=== PATIENT | female | born 2000 | race Caucasian/White ===

== ENCOUNTER 2021-07-13 10:44 | Emergency (ER) | payer OTHER, SELFPAY ==
[2021-07-13 10:58] VITALS: BP 115/74; PULSE 104; RESP 16; TEMP 36.6; O2SAT 99
--- NOTE | 2021-07-13 10:59 | ED.URI ---
HPI - URI/Sore Throat General Chief Complaint: Upper Respiratory Infection Stated Complaint: sinus infection Time Seen by Provider: 07/13/21 11:02 Source: patient History of Present Illness HPI Narrative: patient presents with 2 day history of runny nose, body aches and headache. no high fever . normal appetite and activity. normally healthy individual. patient is covid vaccinated. MD elicited complaint: sore throat and nasal congestion Related Data Home Medications Medication Instructions Recorded Confirmed No Home Medications 07/13/21 07/13/21 Allergies Allergy/AdvReac Type Severity Reaction Status Date / Time No Known Drug Allergies Allergy Unknown Verified 07/13/21 10:58 Review of Systems Review of Systems: CONSTITUTIONAL: Denies chills, or sweats. Reports fever and generalized body aches EYES: Denies visual changes, redness, or discharge. ENT: Denies otalgia. Reports nasal congestion runny nose and sore throat CARDIOVASCULAR: Denies chest pain, palpitations, or edema. RESPIRATORY: Denies dyspnea. Reports occasional cough GASTROINTESTINAL: Denies abdominal pain, nausea, vomiting, or diarrhea. GENITOURINARY: Denies dysuria or hematuria. SKIN: Denies rash or itching. MUSCULOSKELETAL: Denies back pain, joint pain, or myalgia. Reports generalized body aches NEUROLOGIC: Denies headache, numbness, or weakness. PSYCHIATRIC: Denies anxiety or depression. PMFSH Comments At time of signature, agree with nursing past medical, surgical, social and family history. There is no relevant family history pertinent to the presenting complaint Exam Narrative: The patient is a well-developed, well-nourished in no acute distress. SKIN: Skin is warm and dry without erythema, swelling or exudate. There is good turgor. No tenting. HEAD: Atraumatic. Normocephalic. No temporal or scalp tenderness. EYES: Moist and bright. Sclera and conjunctivae normal. No discharge. PERRLA. Extraocular motions intact. Gross visual acuity intact. EARS: Pinna is normal shape and contour. Clear external auditory canals. TM pearly multani with good cone of light, no erythema or suppuration. Bilateral cerumen noted no gross hearing deficit. NOSE: pink, moist mucosa with good air movement. Clear rhinorrhea without nasal flaring. Septum midline. Mouth: moist mucous membranes. THROAT; mild erythema noted to posterior oropharynx with moderate postnasal drainage. Without exudate or ulceration.. Uvula midline. Normal movement of soft palate. NECK: Supple and nontender with full range of motion without discomfort. No meningeal signs. LUNGS: Equal and bilateral breath sounds without wheezes, rales or rhonchi. CHEST: The chest wall is without retractions or use of accessory muscles. HEART: Has a regular rate and rhythm without murmur, gallops, click or rub. ABDOMEN: Soft, nontender with positive active bowel sounds. No rebound tenderness. EXTREMITIES: Without cyanosis, clubbing or edema. Equal 2+ distal pulses and 2 second capillary refill noted. NEUROLOGIC: alert, active, . The patient moves all extremities with normal muscle strength. Normal muscle tone is noted. Normal coordination is noted. NO focal neurological findings noted. Course Course Level of Care: Express Care Visit Vital Signs Vital signs: Vital Signs Temperature 36.6 C 07/13/21 10:58 Pulse Rate 104 H 07/13/21 10:58 Respiratory Rate 16 07/13/21 10:58 Blood Pressure 115/74 07/13/21 10:58 Pulse Oximetry 99 07/13/21 10:58 Temperature 36.6 C 07/13/21 10:58 Pulse Rate 104 H 07/13/21 10:58 Respiratory Rate 16 07/13/21 10:58 Blood Pressure 115/74 07/13/21 10:58 Pulse Oximetry 99 07/13/21 10:58 Critical dx considered and discussed with pt. Educated patient on red flag s/s and to go to ED if s/s occur. Discussed with pt when to return to Express Care or primary care provider. Pt gave verbal undertstanding, all questions were answered, and pt was agreeable to plan MDM -
== END 2021-07-13 11:18 | disposition home or self-care (01) ==
PROVIDERS: Emergency Provider Nurse Practitioner Family; PCP Nurse Practitioner Family
DX: U07.1 COVID-19 (principal)
CPT/HCPCS: 87426; 99203; C9803; G0463

== ENCOUNTER 2024-06-10 13:37 | Emergency (ER) | payer OTHER, SELFPAY ==
[2024-06-10 14:20] VITALS: BP 139/83; PULSE 62; RESP 16; TEMP 36.9; O2SAT 97
--- NOTE | 2024-06-10 15:58 | ED.DENTAL ---
HPI - Dental/Oral General Chief complaint: Dental/Oral Stated complaint: sores behind teeth/tender gums Time Seen by Provider: 06/10/24 15:50 Source: patient, RN notes reviewed and old records reviewed Mode of arrival: ambulatory Limitations: no limitations History of Present Illness HPI Narrative: 23 year old female who presents to [facility] care with complaints of white type of blisters of gums behind bottom front teeth with some redness and discomfort under her tongue for the past 3 days. Patient reports no sore throat or any dyspnea,denies any dental pain or any known cavities. Patient reports that she has had canker sores in the past. Patient has not tried any OTC medication for her symptoms. Onset (ago): day(s) (3) Severity: mild Treatment prior to arrival: none Related Data Home Medications ?Medication ?Instructions ?Recorded ?Confirmed ?Last Taken ?Type citalopram 40 mg tablet mg 06/10/24 Unknown History etonogestrel 0.12 mg-ethinyl vag ring vaginal 06/10/24 Unknown History estradiol 0.015 mg/24 hr vaginal ring (EluRyng) Allergies Allergy/AdvReac Type Severity Reaction Status Date / Time No Known Drug Allergies Allergy Unknown Verified 06/10/24 14:26 Review of Systems Review of Systems: CONSTITUTIONAL: Denies fever, chills, or sweats. ENT: Denies rhinorrhea, congestion, sore throat, or otalgia. reports blister type of lesion behind the bottom lower lower front teeth with some soreness and redness to tissue under tongue, denies any dental pain CARDIOVASCULAR: Denies chest pain, palpitations, or edema. RESPIRATORY: Denies cough or dyspnea. SKIN: Denies rash or itching. MUSCULOSKELETAL: Denies myalgia. NEUROLOGIC: Denies headache All systems reviewed & are unremarkable except as noted in HPI and below PMFSH Past Medical History Medical History (Updated 06/12/24 @ 15:39 by Cristina Valenzuela NP) Anxiety and depression OCD (obsessive compulsive disorder) Social History Social History (Updated 06/12/24 @ 15:40 by Cristina Valenzuela NP) Smoking status: Current every day smoker Tobacco type: e-cigarettes/vaping Alcohol intake: unknown Substance use: unknown Gender identity (if verbalized by the patient): Female Comments At time of signature, agree with nursing past medical, surgical, social and family history. There is no relevant family history pertinent to the presenting complaint Exam Narrative: GENERAL: Well-appearing, well-nourished, and in no acute distress. HEAD: Normocephalic, atraumatic. EYES: PERRLA and EOMI. ENT: Nares clear, no rhinorrhea or epistaxis. Mucous membranes moist. Patient has no missing teeth or any noted cavities, has white blister type of lesions behind bottom lower front teeth with some redness and discomfort to tissue under tongue, No difficulty with swallowing or with her breathing, no Johnathan angina or any trismus NECK: Supple. no lymphadenopathy CHEST: Clear to auscultation. No respiratory distress.SAO2 97% on room air HEART: Regular rate and rhythm. No murmur heard. Normal peripheral pulses. SKIN: Warm, dry, no rash. NEURO: No focal deficits. Alert and oriented x3. Course Course Emergency Course: Patient is aware of diagnosis, understands and agrees to treatment plan. Anticipatory guidance given. Patient agrees to follow-up as directed and is aware of reasons to seek care at the emergency department. Portions of this record may have been created with voice recognition software Level of Care: Express Care Visit Vital Signs Vital signs: Vital Signs Temperature 36.9 C 06/10/24 14:20 Pulse Rate 62 06/10/24 14:20 Respiratory Rate 16 06/10/24 14:20 Blood Pressure 139/83 06/10/24 14:20 Pulse Oximetry 97 06/10/24 14:20 Oxygen Delivery Room Air 06/10/24 14:20 Temperature 36.9 C 06/10/24 14:20 Pulse Rate 62 06/10/24 14:20 Respiratory Rate 16 06/10/24 14:20 Blood Pressure 139/83 06/10/24 14:20 Pulse Oximetry 97 06/10/24 14:20 Oxygen Delivery Room Air 06/10/24 14:20 Reviewed MDM - Dental/Oral MDM Narrative Medical decision making narrative: Patients pain and complaint coupled with physical findings are consistent with dentalgia. There are no focal signs of space occupying lesions that are compromising to the airway; no dysphagia, odynophagia, dysphonia, or dyspnea. No uvular deviation or soft palate edema. Patient is non-toxic appearing. The floor of the mouth is soft with no signs of Johnathan's Angina; no induration below mandible, no neck pain.? Patient is without trismus or drooling and able to swallow secretions.? Patient is felt appropriate for discharge home with dental follow up. Differential Diagnosis Differential diagnosis: Likely gingival abscess, aphthous ulcer and other (stomatitis, gum lesions) Medical Records Attestation: I reviewed the patient's medical records. Lab Data Attestation: I reviewed the patient's lab results. Critical Care Time Critical Care Time Critical Care Time: No Discharge Plan Discharge Clinical Impression: Gingival abscess Patient Disposition: Home, Self-Care Condition: Stable Instructions: Antibiotic Form, Gingivostomatitis (ED) Additional Instructions: Avoid temperature extremes May apply heat or ice to the face Gentle brushing and flossing Antibiotic as directed Tylenol for lesser pain Use ibuprofen regularly Peridex mouthwash Follow-up with the dentist as soon as possible--see the list provided need to get good cleaning done and exam If your symptoms persist, change or worsen significantly before you can contact your personal physician then please, without delay, go to the emergency department for further evaluation. Follow-up with PCP in 7-10 days or sooner if needed Follow up with PCP soon in regards to your blood pressure which is elevated above threshold for referral. Blood pressure above 120/80 may indicate pre-hypertension. 139/83 Patient Language: Bengali Prescriptions: New amoxicillin-pot clavulanate 875-125 mg tablet 1 tablet PO Q12H Qty: 20 0RF chlorhexidine gluconate [Peridex] 0.12 % mouthwash 15 ml mucous membrane BID Qty: 473 0RF No Action citalopram 40 mg tablet etonogestrel-ethinyl estradiol [EluRyng] 0.12-0.015 mg/24 hr ring VAGINAL Follow-up/Referrals: Sonia,MD Blane [Primary Care Provider] - Stand Alone Forms: Work/School Release IP Time of Disposition: 16:14 Quality [place]ena Coma Scale Eyes: Open Verbal: Oriented and Alert Motor: Follows Commands [place] Coma Total Score: 15
== END 2024-06-10 16:21 | disposition home or self-care (01) ==
PROVIDERS: Emergency Provider Registered Nurse; PCP Family Medicine
DX: K05.20 Aggressive periodontitis, unspecified (principal); F17.290 Nicotine dependence, other tobacco product, uncomplicated
CPT/HCPCS: 99213; G0463

== ENCOUNTER 2024-09-02 11:43 | Emergency (ER) | payer OTHER, SELFPAY ==
--- NOTE | ~2024-09-02 | XR_ITS ---
XR wrist RT min 3V Ordering provider: Flor Couch APRN History: . pain posterior and medial rt wrist x 2 days, bump posterior . Comparison: None. FINDINGS: BONES: No acute fracture or dislocation. No definite scaphoid fracture. Sclerotic area with central lucency is seen in the scaphoid bone which may indicate a cyst. JOINT SPACES: Normal. SOFT TISSUES: Normal. IMPRESSION: No acute osseous abnormality right wrist. Reviewed, dictated and finalized at location A.
[2024-09-02 11:51] VITALS: BP 118/79; PULSE 79; RESP 16; TEMP 36.6; O2SAT 99
--- NOTE | 2024-09-02 12:03 | ED_ITS ---
HPI - Extremity Injury (Upper) General Chief Complaint: Extremity Injury, Upper Stated Complaint: pain in right wrist Time Seen by Provider: 09/02/24 12:03 Source: patient, RN notes reviewed and old records reviewed Mode of arrival: ambulatory Limitations: no limitations History of Present Illness HPI narrative: 23-year-old female presents to the [facility] with right wrist pain. Ulnar aspect. No snuffbox tenderness. Patient states that she is working in her garden and lifting a lot heavy rocks. No bruising or swelling noted. Also has a concern for a bump on the dorsal aspect wrist Onset (ago): day(s) (1) Related Data Home Medications ?Medication ?Instructions ?Recorded ?Confirmed ?Last Taken ?Type citalopram 40 mg tablet mg 06/10/24 Unknown History etonogestrel 0.12 mg-ethinyl vag ring vaginal 06/10/24 Unknown History estradiol 0.015 mg/24 hr vaginal ring (EluRyng) Allergies Allergy/AdvReac Type Severity Reaction Status Date / Time No Known Drug Allergies Allergy Unknown Verified 09/02/24 11:55 Review of Systems Review of Systems: All systems reviewed & are unremarkable except as noted in HPI and below Constitutional: Constitutional: Reports no additional constitutional complaints ENT: Reports system reviewed and no additional complaints, except as documented Cardiovascular: Cardiovascular: Reports no additional cardiovascular complaints, Denies chest pain and Denies dyspnea Respiratory: Respiratory: Reports no additional respiratory complaints, Denies chest congestion, Denies cough and Denies dyspnea Musculoskeletal: Musculoskeletal: Reports as per HPI and Reports arthralgias (Right wrist) Integumentary/Breasts: Skin/Breast: Reports system reviewed and no additional complaints, except as docu PMFSH Past Medical History Medical History Anxiety and depression OCD (obsessive compulsive disorder) Social History Social History Smoking status: Current every day smoker Tobacco type: e-cigarettes/vaping Alcohol intake: unknown Substance use: unknown Gender identity (if verbalized by the patient): Female Comments At the time of my signature, I reviewed and agree with the nursing past medical, surgical, social, and family history. There is no relevant family history pertinent to the patient complaint. Exam Const: General: cooperative, healthy appearing, comfortable, no acute di stress, well developed, alert and well nourished Nutritional Appearance: well nourished Orientation/consciousness: patient oriented x3 Limitations: no limitations HENMT: Head: normal to inspection Eyes: General: appearance normal, both eyes and all related structures Alignment and Position: alignment normal Neck: Neck: normal visual inspection, full ROM, no lymphadenopathy and no meningeal signs Chest: Chest palpation & inspection: normal inspection of the chest Resp: Effort & Inspection: normal respiratory effort and able to speak in complete sentences Cardio: Rate: regular rate Skin: General skin exam: normal color and no rashes or lesions noted Neuro: General: patient oriented x3, gait normal, moves all extremities and no meningeal signs Cognition (Neuro): normal cognition Speech: normal speech Gait exam (Neuro): Normal gait present Extrem: General: normal to inspection, full ROM, capillary refill normal and normal gait Right upper extremity: wrist tenderness of the distal ulna, abnormal ROM pain with active ROM during, normal vascular exam and radial pulse present; no swelling, no lacerations, no ecchymosis, no crepitus, no foreign body, no penetrating wound and no deformity and Extremity exam: right hand normal to inspection and normal capillary refill Psych: Appearance: grossly normal and well kempt Mental Status: mental status grossly normal Speech and movement: Normal speech and movement present and Clear speech present Affect: normal affect Attitude: cooperative Course Course Level of Care: Express Care Visit Vital Signs Vital signs: Vital Signs Temperature 97.9 F 09/02/24 11:51 Pulse Rate 79 09/02/24 11:51 Respiratory Rate 16 09/02/24 11:51 Blood Pressure 118/79 09/02/24 11:51 Pulse Oximetry 99 09/02/24 11:51 Oxygen Delivery Room Air 09/02/24 11:51 Temperature 97.9 F 09/02/24 11:51 Pulse Rate 79 09/02/24 11:51 Respiratory Rate 16 09/02/24 11:51 Blood Pressure 118/79 09/02/24 11:51 Pulse Oximetry 99 09/02/24 11:51 Oxygen Delivery Room Air 09/02/24 11:51 Reviewed MDM - Extremity Injury (Upper) MDM Narrative Medical decision making narrative: Patient sitting comfortably in exam room. Nontoxic, vitals stable. Patient in no acute distress. Patient presents with 1 day history of right wrist pain. X- rays negative. Exam consistent with sprain and a ganglion cyst. Patient appropriate for outpatient treatment with close follow-up. Discharge instructions reviewed with patient, as well as provided in writing per nursing staff. The instructions also include specific and strict return/GO TO THE ER as well as f/u information. All questions have been answered, and the patient deny any further questions with discharge and discharge plan. Some parts of this dictation were generated by voice recognition software and may contain typographical and/or grammatical inaccuracies. Differential Diagnosis Differential diagnosis: Likely sprain and strain of wrist and fracture of wrist Imaging Data Radiologist's impression: XR wrist RT min 3V Ordering provider: Flor Couch APRN History: . pain posterior and medial rt wrist x 2 days, bump posterior . Comparison: None. FINDINGS: BONES: No acute fracture or dislocation. No definite scaphoid fracture. Sclerotic area with central lucency is seen in the scaphoid bone which may indicate a cyst. JOINT SPACES: Normal. SOFT TISSUES: Normal. IMPRESSION: No acute osseous abnormality right wrist. Critical Care Time Critical Care Time Critical Care Time: No Discharge Plan Discharge Clinical Impression: Ganglion cyst of dorsum of right wrist Sprain of wrist, right Qualifiers: Encounter type: initial encounter Qualified Code(s): S63.501A - Unspecified sprain of right wrist, initial encounter Patient Disposition: Home, Self-Care Condition: Stable Instructions: Ganglion Cyst (ED), Wrist Sprain (ED) Additional Instructions: Your Xray did not show a fracture. Ice should be applied to help reduce swelling. It can be used for 20 to 30 minutes, every 2-3 hours while awake. Do not apply ice directly to your skin. A wrist brace or fadi-wraps will help support your injured wrist You can alternate ibuprofen 600mg and Tylenol 650mg every 4 hours as needed for pain Please schedule a follow-up visit with your personal physician for further evaluation and treatment within 2 weeks especially if symptoms persist. For new or worsening symptoms go directly to the emergency room Patient Language: Citizen Of [place] Prescriptions: No Action citalopram 40 mg tablet etonogestrel-ethinyl estradiol [EluRyng] 0.12-0.015 mg/24 hr ring VAGINAL Follow-up/Referrals: PHYSICIAN NOT ON STAFF,NONSTAFF [Primary Care Provider] - Stand Alone Forms: Work/School Release IP Time of Disposition: 12:32
--- OUTSIDE RECORDS SUMMARY | 2024-09-02 12:32 | XMS_ITS | Referral Summary ---
Author Organization [facility] [address] Address 1 [facility] [place] [address] Phone Care Team Providers Care Pocket Stitcher Name Role Phone Blane Scott MD Primary Care Provider [phone] Encounters Date Type Department Care Team Description 07/28/2024 11:30 AM AUDIO PRODUCTION INSTRUCTOR Office Visit [facility] Primary Care at [address] [place] [address] Blane Scott MD Depression with anxiety (Primary Dx); Class 1 obesity due to excess calories without serious comorbidity with body mass index (BMI) of 32.0 to 32.9 in adult; Iron deficiency; Preventative health care; Lipid screening; Need for influenza vaccination from Last 3 Months Allergies No known active allergies Medications etonogestreL-ethi nyl estradioL (NUVARING, ELURYNG) 0.12-0.015 mg/24 hr vaginal ringIndications:E ncounter for surveillance of vaginal ring hormonal contraceptive device Insert vaginally and leave in place for 3 consecutive weeks, then remove for 1 week. 3 each 4 4 025 Active citalopram (CeleXA) 40 mg tablet Take 1 tablet (40 mg total) by mouth daily 90 tablet 2 5 Active Active Problems Problem Noted Date Diagnosed Date Annual physical exam 01/22/2024 Assessment & Plan (01/22/2024 10:49 AM CDT): Discussed lifestyle modifications, diet and exercise. Routine blood work ordered/reviewed today. Yearly vision and dental examinations. COVID-19 03/17/2023 Assessment & Plan (03/17/2023 3:08 PM CDT): Paxlovid prescribed, Paxlovid fact she sent to patient via [employer]. Treat symptoms with [id number] medications. Go to nearest emergency room if signs or symptoms worsen. Irritable bowel syndrome with diarrhea Assessment & Plan (11/18/2022 11:50 AM CDT): Symptoms are stable. Assessment & Plan (05/16/2022 10:58 AM AUDIO PRODUCTION INSTRUCTOR): Increase fiber in diet. Decrease fatty/ greasy food. May continue bentyl prn. Assessment & Plan (04/04/2022 11:55 AM CDT): Discussed treatment options including nortriptyline or amitriptyline, however, she still gets up at night with her baby, so we didn't think this was a good option at this time. She was already asking about restarting sertraline and I think this is a good option. Restart at 50mg, previous dose. I talked to her about bentyl, using as needed for symptoms. Pt was agreeable with this plan. May f/u 6 weeks for recheck and prn Class 1 obesity due to exces s calories with body mass index (BMI) of 32.0 to 32.9 in adult 05/01/2020 Assessment & Plan (07/28/2024 11:24 AM AUDIO PRODUCTION INSTRUCTOR): Wt Readings from Last 3 Encounters: 07/28/24 88.6 kg (195 lb 4.8 oz) 04/20/24 87 kg (191 lb 12.8 oz) 01/28/24 83 kg (183 lb) BMI Readings from Last 3 Encounters: 07/28/24 35.13 kg/m 04/20/24 34.52 kg/m 01/28/24 32.94 kg/m Not at goal of bmi <30 Continue diet and exercise BMI Follow-up includes: nutrition counseling and exercise counseling. Assessment & Plan (01/22/2024 10:51 AM CDT): Wt Readings from Last 3 Encounters: 01/22/24 82.4 kg (181 lb 9.6 oz) 11/17/23 78.9 kg (174 lb) 07/22/23 76.7 kg (169 lb) BMI Readings from Last 3 Encounters: 01/22/24 32.66 kg/m 11/17/23 31.32 kg/m 07/22/23 30.40 kg/m Not at goal of bmi <30 Continue diet and exercise BMI Follow-up includes: nutrition counseling and exercise counseling. Assessment & Plan (07/22/2023 10:26 AM AUDIO PRODUCTION INSTRUCTOR): Wt Readings from Last 3 Encounters: 07/22/23 76.7 kg (169 lb) 07/17/23 77 kg (169 lb 11.2 oz) 04/09/23 73.9 kg (163 lb) BMI Readings from Last 3 Encounters: 07/22/23 30.40 kg/m 07/17/23 30.52 kg/m 04/09/23 29.34 kg/m Not at goal of bmi <30 Continue diet and exercise BMI Follow-up includes: nutrition counseling and exercise counseling. Assessment & Plan (07/17/2023 11:19 AM AUDIO PRODUCTION INSTRUCTOR): Wt Readings from Last 3 Encounters: 07/17/23 77 kg (169 lb 11.2 oz) 04/09/23 73.9 kg (163 lb) 03/17/23 78 kg (172 lb) BMI Readings from Last 3 Encounters: 07/17/23 30.52 kg/m 04/09/23 29.34 kg/m 03/17/23 30.96 kg/m Not at goal of bmi <30 Continue diet and exercise BMI Follow-up includes: nutrition counseling and exercise counseling. Assessment & Plan (01/13/2023 2:20 PM CDT): Wt Readings from Last 3 Encounters: 01/13/23 76.1 kg (167 lb 11.2 oz) 11/18/22 75.3 kg (166 lb) 05/16/22 78.9 kg (174 lb) BMI Readings from Last 3 Encounters: 01/13/23 30.16 kg/m 11/18/22 29.88 kg/m 05/16/22 31.32 kg/m Not at goal of bmi <30 Continue diet and exercise BMI Follow-up includes: nutrition counseling and exercise counseling. Assessment & Plan (04/04/2022 11:57 AM CDT): BMI Follow-up includes: nutrition counseling. Assessment & Plan (09/12/2021 10:40 AM CDT): HPI: Condition is not at/near goal A&P: Discussed/ordered labs, encouraged healthy, low carbohydrate lifestyle and at least 150min/week of exercise Assessment & Plan (09/11/2021 10:26 AM CDT): HPI: Condition is not at/near goal goal BMI <30 A&P: Healthy, high-protein, lower carbohydrate, lower fat lifestyle and exercise for 150min/week recommended Substitutions: Recommend tracking everything you put in your mouth on an kaushik like [employer] or [employer] carries a zero net carb bread If you are looking for whole potatoes, like to use in soup or new potato shape/flavor, radishes are a great replacement If you are looking for mashed potatoes, riced cauliflower in the frozen bag section are a great replacement For pasta, try using zucchini noodles, lay them out on a cookie sheet and pat dry with a tea towel to try to remove as much moisture as possible. Heat your pasta sauce on the stove and put the noodles in for 30-45 seconds. If you leave them in much longer they will become mushy [place] and/or coconut flour instead of regular flour For pizza dough, try fathead pizza dough recipe online. To get a crispy crust, bake on one side for 8-12 min, then flip over and bake on the other side for 8-12 min, then put toppings on and bake until the cheese on top of pizza melts chaffles recipe online For ice cream, try the brand Enlightened To replace coffee creamer and make it low carb, use heavy creamer with sugar free Torani sweetener For chips, try Whisps or pork rinds For yogurt, try Two Good surinamese yogurt Use Pinterest for recipe ideas. Type in low carb... Migraine without aura and wi thout status migrainosus, not intractable 01/22/2018 Assessment & Plan (03/05/2020 10:01 PM CDT): Discussed hx of head injury, but given this occurred 2-3 months ago, will treat for current migraine headaches. Discussed starting a triptan and when to take/ dosing. May still take with nsaids or acetaminophen. I asked her to f/u in 1 month for recheck. Pt was agreeable with plan of care Assessment & Plan (01/22/2018 1:14 PM CDT): Headaches are newly identified. Continue current treatment regimen. I do not want to start any new medication at this time due to syncopal episode. She may continue the advil or tylenol at this time. Rest and fluids. Menorrhagia with regular cycle 01/16/2018 Assessment & Plan (01/18/2018 10:58 PM CDT): Continue with BCP Pt. Reports decrease in bleeding with use of BCP Vitamin D deficiency 01/16/2018 Iron deficiency 12/08/2017 Assessment & Plan (07/28/2024 11:26 AM AUDIO PRODUCTION INSTRUCTOR): Lab Results Component Value Date WBC 5.0 01/13/2023 HGB 14.2 01/13/2023 HCT 42.4 01/13/2023 MCV 86.5 01/13/2023 LABPLAT 235 01/13/2023 Stable Cbc as above No longer supplem,enting iron Continue current regimen Assessment & Plan (01/13/2023 2:24 PM CDT): Recheck cbc now and iron panel Assessment & Plan (01/18/2018 10:56 PM CDT): Constipated x 6 days when on Iron supplement. Tries to take medication but hard to tolerate-upset stomach, bloating Will recheck cbc Refer to GI-for reports of some blood in the stool Pt. On control to help with heavy periods. Pt. Was also a vegetarian but started eating meat in the last 4-5 weeks. If no improvement in CBC, will consider doing Iron infusions Assessment & Plan (12/08/2017 5:32 PM CDT): Pt. Went to donate blood and they stated that her iron count was too low to donate. Check iron studies Addendum show CARLOS Will order supplemtn Depression with anxiety 10/15/2017 Overview (11/18/2022): Discontinued Zoloft 100 mg with . Zoloft: while a teenager, and Assessment & Plan (07/28/2024 11:25 AM AUDIO PRODUCTION INSTRUCTOR): At goal at this time Has had some stress at home Celexa 40 mg every day Assessment & Plan (01/22/2024 10:50 AM CDT): At goal at this time Has had some stress at home Celexa 40 mg every day Cont inderal 20 mg tid, buspar 5 mg tid Assessment & Plan (07/22/2023 10:23 AM AUDIO PRODUCTION INSTRUCTOR): Not at goal at this time Will increase celexa to 40 mg every day States that she has had periods of 'paranoia' , gets heart palpitations, feels hyper aware of her body and anxiety worsens Worsening sx Start buspar 5 mg tid Start propranolol Assessment & Plan (07/17/2023 11:18 AM AUDIO PRODUCTION INSTRUCTOR): Not at goal at this time Will increase celexa to 40 mg every day States that she has had periods of 'paranoia' , gets heart palpitations, feels hyper aware of her body and anxiety worsens Assessment & Plan (01/13/2023 2:23 PM CDT): Currently on Celexa 20 mg every day States that she takes it at night because it makes her tired States that her anxiety has improved somewhat but not at goal Has not used the hydroxyzine at all Assessment & Plan (11/18/2022 9:35 AM CDT): Worsening. Will start citalopram 20mg. Start with 10mg x 7 days, then increase to 20mg daily. Hydroxyzine prn for anxiety. Will have her f/u in 4 weeks for recheck. Assessment & Plan (05/16/2022 10:57 AM AUDIO PRODUCTION INSTRUCTOR): Increase sertraline to 100mg daily. Consider returning to counseling. Find small moments for yourself. Call with any problems/concerns. F/u in 6 months or as needed. Assessment & Plan (04/04/2022 11:56 AM CDT): Patient admits that this last month has been a little more stress inducing and has had a little more anxiety. Asking to restart sertraline 50 mg once daily. We did briefly discussed the correlation between IBS and stress and anxiety. Will go ahead and restart the sertraline 50 mg once daily. Will have her follow-up in 6 weeks for recheck Assessment & Plan (09/11/2021 10:29 AM CDT): Was previously on zoloft but was discontinued 04/2020 due to . Now states that she is having some worsening sx, most commonly feels her heart racing and mind racing when she lies down to go to sleep. Stated that this basically began when she got her covid shot but this seems to be more of a chronic issue. Assessment & Plan (09/12/2019 7:33 PM CDT): Doing well with sertraline. Will continue current dose. F/u 6 months Assessment & Plan (05/05/2019 8:59 PM AUDIO PRODUCTION INSTRUCTOR): Will restart zoloft. Start 50mg x 7 days, then increase to 100mg daily. Pt states she has family support and knows to seek help if she has suicidal ideations. I asked her to f/u in 1 month for recheck Assessment & Plan (05/18/2018 4:06 PM AUDIO PRODUCTION INSTRUCTOR): I discussed referral to psychiatry with patient. She had a bad experience with a previous psychiatrist seen at [facility], now [facility]. I told her that I would refer her to a private office that also has female nurse practitioners, that I think she would like seeing. In the interim, I will slowly decrease the sertraline weekly by 50mg and at the same time start prozac 10mg x 7 days, then increase to 20mg daily. F/u 1 month. Discussed with Mom that, while switching medications, she may be more vulnerable with mood swings and harmful thoughts and she should be watched and monitored more closely. Mom voiced understanding. Assessment & Plan (01/18/2018 10:54 PM CDT): Psychological condition is improving with treatment. Continue current treatment regimen. Zoloft and Trazodone for sleep Psychological condition will be reassessed at the next regular appointment. Assessment & Plan (10/15/2017 8:19 PM CDT): I discussed with her and Mom that if she is stable on current medications, and she has for the last couple of years, that I would continue prescribing current medications. Her and her Mom have a good relationship and Mom states she talks to her when mood changes. Mom is aware if there are changes. They asked about any other medication for ADD besides straterra. I told her that with her history I do not feel that I can prescribe anything for ADD and that I would then recommend she return to psychiatrist. She admits to not liking the psychiatrist she was seeing. I gave them the name of a psychiatrist in [place] if they wishes to see them. They will see how the summer goes and consider in the future. Acne vulgaris 10/15/2017 Assessment & Plan (10/15/2017 8:22 PM CDT): Acne is light and covers smaller area on upper chest and upper back. I think we can try some topical antibiotic lotion such as clindamycin. Continue acne wash as she has been using. Resolved Problems Problem Noted Date Diagnosed Date Resolved Date Seborrheic dermatitis of scalp 02/11/2018 05/05/2019 Syncope 01/22/2018 05/05/2019 Assessment & Plan (01/22/2018 1:13 PM CDT): We'll start with CT head due to syncopal episode witnessed by Mom, lasting over 10 seconds with some kind of twitching movements. She just had a full lab workup on 01/19 and all was normal. Will refer to neurology at [facility]. Off work for 1 week. May call if needs more time off work. BMI 27.0-27.9,adult 01/18/2018 05/18/20 18 Assessment & Plan (01/18/2018 10:59 PM CDT): Diet-Many types of diets produce modest weight loss. Options include balanced low-calorie, low-fat low-calorie, moderate-fat low-calorie, low-carbohydrate diets, and the Mediterranean diet. Dietary adherence is an important predictor of weight loss, regardless of the type of diet. Exercise -- Although less potent than dietary restriction in promoting weight loss, increasing energy expenditure through physical activity is a strong predictor of weight loss maintenance. Physical activity should be performed for approximately 30 minutes or more, five to seven days a week, to prevent weight gain and to improve cardiovascular health. Behavior modification or behavior therapy is one cornerstone in the treatment for obesity. The goal of behavioral therapy is to help patients make long-term changes in their eating behavior by modifying and monitoring their food intake, modifying their physical activity, and controlling cues and stimuli in the environment that trigger eating. At least 30 minutes a day for at least 5 days a week for a total of 150 minutes a week or moderate-intensity activity! Something is always better than nothing! Blood in stool 01/16/2018 05/05/2019 Assessment & Plan (01/18/2018 11:09 PM CDT): Had a few episodes of blood in stool Will refer to GI for colonoscopy Pt. With CARLOS Will check cbc, and labs for UC and Crohns-ESR, CRP Unintended weight gain 01/16/201805/05 Assessment & Plan (05/18/2018 4:03 PM AUDIO PRODUCTION INSTRUCTOR): Discussed that sertraline can cause some increase hunger , but is not going to cause weight gain by itself. Taking it off of her is not going to cause weight loss magically either. Recommended seeing a airport operations crew member to discuss eating habits and to start a healthy eating lifestyle Assessment & Plan (01/18/2018 10:57 PM CDT): Wt. Gain of about 10 pounds in the last 2 months Will check TSH Bronchitis 12/08/2017 01/22/2018 Assessment & Plan (12/08/2017 5:28 PM CDT): Take your antibiotic as directed-augmentin You may take a cough suppressant to calm your cough (dayquil, delsym, or nyquil) If your cough is productive or you have tight chest congestion with thick mucus- you can use a cough expectorant like Mucinex Benadryl/Zyrtec can be used to dry up a runny nose along with a nasal spray like azelastine or mometasone.. The use of Chlorpheniramine (antihistamine) plus pseudoephedrine (decongestant) has been proven to be helpful. Avoid environmental triggers and allergen Drink plenty of fluids and get plenty of rest Tylenol/Motrin for pain/fever Will get CXR and CBC-pt with fatigue, severe cough, chills, sweating and rales to GRACE Push oral fluids Pt. Did have a positive EBV in March of 2017 Sore throat 12/08/2017 01/22/2018 Scabies 07/07/2017 10/15/2017 Vasovagal syncope 05/27/2017 05/05/2019 Tension type headache 05/27/20172018 Tachycardia 03/28/2017 10/15/2017 Other fatigue 03/28/2017 10/15/2017 Anxiety, generalized 10/14/2016 019 Overview (11/08/2016): JESSIE - Generalized anxiety disorder Immunizations Immunization Administration Dates Next Due DTaP 10/01/2005, 2,07/03/2001,05/05,03/06/2001 HPV, Quadrivalent 11/01/2014 HPV9 01/10/2017,10/14/2016 Hep A, Ped Unspecified 01/09/2011 Hep A, Pediatric 2011,01/09/2011 Hep B, Adolescent or Pediatric 10/02/2001,2000,2000 Hep B, Unspecified 10/02/2001,02/03/2001, 001 HiB 04/06/2002, 2,05/05/2001,03/06 Hib (PRP-T) 03/06/2001 IPV 10/01/2005, 2,05/05/2001,03/06 Influenza, Quadrivalent, Spl it, Intramuscular 04/18/2010 Influenza, Quadrivalent, Spl it, Preservative Free, Intramuscular 04/04/2022,03/02/2020 Influenza, Split 03/13/2009 Influenza, Trivalent, IM (MDV) 04/18/2010 Influenza, Trivalent, Preser vative Free, Intramuscular 07/28/2024 Influenza, Unspecified 07/28/2024(Deferr ed: Patient Refused),01/22/2024(Deferred: Patient Refused),07/22/2023(Deferred: Patient Refused),03/16/2020(Deferred: Patient Refused),03/16/2019 MMR 10/01/2005,01/01/2002 Meningococcal Conjugate (Menveo) 01/29/2012 Meningococcal MCV4P (Menactra) 01/10/2017,2011 Pneumococcal Conjugate 7-Valent 07/03/2001,05/05,03/06/2001 Pneumococcal Conjugate PCV 13 07/08/2002 ,07/08/2002,07/03/2001,05/05,03/06/2001 Pneumococcal Conjugate Pcv20 10/23/2021 Tdap 12/04/2020,01/09/2011 Varicella 01/09/2011,01/01/2002 Social History Tobacco Use Types Packs/Day Years Used Date Smoking Tobacco: Every Day Cigarettes Last attempted to quit: 03/2020 Vaping Smokeless Tobacco: Never Tobacco Cessation:Ready to Q uit: Not Asked; Counseling Given: Not Answered Alcohol Use Standard Drinks/Week Comments No 0 (1 standard drink = 0.6 oz pur e alcohol) AUDIT-C Answer Date Recorded Q1: How often do you have a drink containing alc ohol? Never 12/02/2020 Average Number of Drinks Not on file 021 Q3: How often do you have si x or more drinks on one occasion? Never 12/02/2020 PHQ-2 Answer Date Recorded PHQ-2 Total Score (If total score is 3 or more points, staff should administer the PHQ-9) 0 07/28/2024 Comments No Sex and Gender Information Value Date Recorded Sex Assigned at Not on file Legal Sex Female 2:32 AM AUDIO PRODUCTION INSTRUCTOR Gender Identity Not on file Sexual Orientation Not on file Occupation Industry Job Start Date Job End Date Not on file Not on file Not on file Not on file Last Filed Vital Signs Vital Sign Reading Time Taken Comments Blood Pressure 98/64 07/28/2024 11:00 AM AUDIO PRODUCTION INSTRUCTOR Pulse 86 07/28/2024 11:00 AM AUDIO PRODUCTION INSTRUCTOR Temperature 36.2 C (97.2 F) 04/20/2024 6:04 PM AUDIO PRODUCTION INSTRUCTOR Respiratory Rate 16 07/28/2024 11:00 AM AUDIO PRODUCTION INSTRUCTOR Oxygen Saturation 97% 07/28/2024 11:00 AM AUDIO PRODUCTION INSTRUCTOR Inhaled Oxygen Concentration - - Weight 88.6 kg (195 lb 4.8 oz) 07/28/2024 11:00 AM AUDIO PRODUCTION INSTRUCTOR Height 158.8 cm (5' 2.52 ) 07/28/2024 11:[address] Body Mass Index 35.13 07/28/2024 11:00 AM AUDIO PRODUCTION INSTRUCTOR Plan of Treatment Not on file Procedures Procedure Name Priority Date/Time Associated Diagnosis Comments N. GONORRHOEAE/C. TRACHOMATIS AMPLIFICATION Routine 01/28/2024 1:00 PM CDT Screening examination for venereal disease PAP WITH REFLEX TO HIGH RISK HPV Routine 01/18/2022 11:41 AM CDT Screening for malignant neoplasm of the cervix HEPATITIS C ANTIBODY Routine 05/01/2020 2:10 PM AUDIO PRODUCTION INSTRUCTOR 8 weeks gestation of Encounter for supervision of normal first in first trimester from Last 3 Months or Most Recently Relevant to Health Maintenance Results * N. gonorrhoeae/C. trachomatis Amplification Endocervical (01/28/2024 1:00 PM CDT) C. trachomatis Not Detected [facility] Comment:Testing performed by : [facility], [address] [place]., [address] N. gonorrhoeae Not Detected [facility] Comment: Interpretive Data This assay detects Chlamydia trachomatis and Neisseria gonorrhoeae by nucleic acid amplification testing (NAAT). This assay has been cleared by the [place] Food and Drug administration. The performance characteristics of this test have been verified by the [facility] Molecular Infectious Disease laboratory. The performance characteristics of this test have not been evaluated in individuals less than 14 years of age. Current Interpretive Data was last revised on 2023. Testing performed by: [facility], [address] [place] [address]., [id number] Endocervical (None) 01/28/20 24 1:00 PM CDT 01/29/2024 9:59 AM CDT Karina Hernandez MD LAB MICROBIOLOGY - [facility] ORDERABLES Final Result [facility] [id number] [place] [address] Department [place] [address] [facility] * Pap with reflex to High Risk HPV (01/18/2022 11:41 AM CDT) Thin prep (Pap test) 01/18/2022 11:41 AM CDT 01/18/2022 11:41 AM CDT Narrative PATHOLOGY CH - 01/22/2022 10:31 AM CDT [facility] Department of Pathology [address] [place] [id number] Final Report Note to Patients: This report may contain a detailed description of human tissue sent by a health care provider to the laboratory for pathologic evaluation. The content of this report is essential for diagnosis and may provide important critical findings. This information may be unfamiliar to patients to review without a medical professional present. It is advised that the patient review this report in the presence of a health care provider who can answer questions and explain the details. Patient Name: JOHANNY RAMOS Address: [address] [place] [address] Gender: F : 2000 (Age: 21) Service: Laboratory Location: Lab Hospital #: [id number] Patient Type: Ref Lab Taken: 01/18/2022 Received: 01/18/2022 Accessioned:: 01/21/2022 Reported: 01/22/2022 Physician(s): MD Karina Sanchez MD Diagnosis: Source of Specimen: Imaged Thinprep Pap Test w/ Reflex HPV - Special Service Officer Cytologic Material Specimen Adequacy: - Specimen satisfactory for interpretation; endocervical/transformation zone component absent or insufficient General Category: - Negative for intraepithelial lesion or malignancy Interpretation/Results: - Numerous RBC's DIAZ Tran(ASCP) Report Electronically Reviewed and Signed Out By DIAZ Tran(ASCP) 01/22/2022 10:31:39Specimen(s) Received: A: Imaged Thinprep Pap Test w/ Reflex HPV - Special Service Officer Cytologic Material Clinical History: Last Menstrual Period: 01/15/2022 The Pap test is a screening test used to aid in the detection of cervical cancer and its precursors. It should not be the sole means by which malignant and premalignant lesions are diagnosed. Both false negative and false positive results may occur. It also has poor sensitivity for the detection of endometrial lesions and should not be used to evaluate suspected endometrial abnormalities. For these reasons it is most important to obtain Pap tests at regular intervals. The performance characteristics of some immunohistochemical stains, fluorescence in-situ hybridization tests and immunophenotyping by flow cytometry cited in this report (if any) were determined by the Surgical Pathology Department at [facility] as part of an ongoing quality assurance monitor body program and in compliance with federally mandated regulations drawn from the Clinical Laboratory Improvement Act of 1988 (CLIA '88). Some of these tests rely on the use of analyte specific reagents and are subject to specific labeling requirements by the [place] Food and Drug Administration. Such diagnostic tests may only be performed in a facility that is certified by the Department of Health and Human Services as a high complexity laboratory under CLIA '88. The FDA has determined that such clearance or approval is not necessary. This test is used for clinical purposes. It should not be regarded as investigational or for research. Nevertheless, federal rules concerning the medical use of analyte specific reagents require that the following disclaimer be attached to the report: This test was developed and its performance characteristics determined by the Surgical Pathology Department [facility]. It has not been cleared or approved by the U. S. Food and Drug Administration. Karina Hernandez MD LAB CYTOLOGY ORDERABL ES Final Result Performing Organization Address [facility] Co de Phone Number [facility] [address] [place] [address] * Hepatitis C antibody (05/01/2020 2:10 PM AUDIO PRODUCTION INSTRUCTOR) Hep C Ab Nonreactive Nonreactive MARK TARANGO Comment: Interpretive Data Nonreactive: Antibodies to HCV not detected. Does NOT exclude the possibility of recent exposure to HCV. Equivocal: Equivocal for HCV antibodies. Supplemental molecular testing will be automatically performed to determine infection status in accordance with current CDC screening recommendations. Reactive: Positive for HCV antibodies. This may represent current or past HCV infection. Supplemental molecular testing will be automatically performed to determine current infection status in accordance with current CDC screening recommendations. Interpretive data was last revised on 2019. Blood specimen (specimen) 05/01/2020 2:10 PM AUDIO PRODUCTION INSTRUCTOR 05/01/2020 7:03 PM AUDIO PRODUCTION INSTRUCTOR Karina Hernandez MD LAB MICROBIOLOGY - GE NERAL ORDERABLES Final Result Performing Organization Address [facility] Co de Phone Number [facility] [address] Department [place] [address] from Last 3 Months or Most Recently Relevant to Health Maintenance Insurance [facility] [place] [place] [place] [employer] [facility] Advance Directives For more information, please contact: [phone] * Full Code (Latest Code Status on File) Date Activated Date Inactivated Comments 12/03/2020 12:01 AM 12/04/2020 11:17 PM * Full Code Date Activated Date Inactivated Comments 12/02/2020 1:51 PM 12/03/2020 12:01 AM Full CPR in case of cardiopulmonary arrest Care Teams Pocket Stitcher Relationship Specialty Start Date End Date Blane Scott MD [address] [place] [address] [address] PCP - General Family Medicine 07/17/23
--- OUTSIDE RECORDS SUMMARY | 2024-09-02 12:32 | XMS_ITS | Clinical Summary ---
Author Organization [facility] Address [address] [place] [address] Phone Care Team Providers Care Car Salesperson Name Role Phone Blane Scott MD Primary Care Provider [phone] Allergies No known active allergies Medications naproxen (NAPROSYN) 500 MG Tablet Take 1 Tablet by mouth 2 times daily (with meals). 30 Tablet 02/16/2022 Active Social History Tobacco Use Types Packs/Day Years Used Date Smoking Tobacco: Never Smokeless Tobacco: Never Tobacco Cessation:Counseling Given: Not Answered Comments No Sex and Gender Information Value Date Recorded Sex Assigned at Not on file Legal Sex Female 12:31 AM CDT Gender Identity Not on file Sexual Orientation Not on file Last Filed Vital Signs Vital Sign Reading Time Taken Comments Blood Pressure 105/64 08/13/2023 2:30 PM UNPAID INTERN Pulse 70 08/13/2023 2:30 PM UNPAID INTERN Temperature 36.5 C (97.7 F) 08/13/2023 11:38 AM UNPAID INTERN Respiratory Rate 17 08/13/2023 2:30 PM UNPAID INTERN Oxygen Saturation 99% 08/13/2023 2:30 PM UNPAID INTERN Inhaled Oxygen Concentration - - Weight 72.6 kg (160 lb) 08/13/2023 11:34 AM UNPAID INTERN Height 160 cm (5' 3 ) 08/13/2023 11:34 AM UNPAID INTERN Body Mass Index 28.34 08/13/2023 11:34 AM UNPAID INTERN Plan of Treatment Health Maintenance Due Date Last Done Comments Hepatitis C Virus (HCV) Screening 2000 Meningococcal B Immunization (1 of 2 - Standard) 2016 Pap Smear 2021 Influenza Immunization (#1) 02/15/202403/17, 03/02/2020, 03/16/2019, Additional history exists SARS-COV-2 Immunization ( season) 2024 10/23/2021, 05/07/2021 Respiratory Syncytial Virus (RSV) Immunization (Adult) (1 - 1-dose 75+ series) 12/31/2075 Hepatitis B Immunization Completed 002, 10/02/2001, 02/03/2001, Additional history exists Human Papillomavirus (HPV) Immunization Completed 01/10/2017, 10/14/2016, 11/01/2014 Meningococcal Immunization (ACWY) Completed 01/10/2017, 01/29/2012, 01/29/2012 DTaP/Tdap/Td Immunization Discontinued 2020, 01/09/2011, 10/01/2005, Additional history exists TdaP Immunization Completed 12/04/2020, 01/09/2011 Pneumococcal Immunization Combined Completed 10/23/2021, 07/08/2002, 07/03/2001, Additional history exists Rotavirus Immunization Aged Out No lo nger eligible based on patient's age to complete this topic Insurance MEDICAID [facility] [employer] [facility] [place] [id number] Care Teams Car Salesperson Relationship Specialty Start Date End Date Blane Scott MD [address] [facility] [place] [address] PCP - General Senior Service Aide 02/16/22
--- OUTSIDE RECORDS SUMMARY | 2024-09-02 12:32 | XMS_ITS | Clinical Summary ---
Author Organization [facility] [address] Address [address] [place] [address] Phone Care Team Providers Care Director Of Coding Name Role Phone Blane Scott MD Primary Care Provider [phone] Allergies No known active allergies Medications etonogestreL-ethi [...] Paxlovid fact she sent to patient via AXADO. Treat symptoms with yjqz-sgl-tcbgily medications. Go to nearest emergency room if signs or symptoms worsen. Irritable bowel syndrome with diarrhea Assessment & Plan (11/18/2022 11:50 AM CDT): Symptoms are stable. Assessment & Plan (05/16/2022 10:58 AM ELECTROTYPE SERVICER): Increase fiber in diet. Decrease fatty/ greasy [...] 05/01/2020 Assessment & Plan (07/28/2024 11:24 AM ELECTROTYPE SERVICER): Wt Readings from Last 3 Encounters: 07/28/24 [...] counseling. Assessment & Plan (07/22/2023 10:26 AM ELECTROTYPE SERVICER): Wt Readings from Last 3 Encounters: 07/22/23 76.7 kg (169 lb) 07/17/23 77 kg (169 lb 11.2 oz) 04/09/23 73.9 kg (163 lb) BMI Readings from Last 3 Encounters: 07/22/23 30.40 kg/m 07/17/23 30.52 kg/m 04/09/23 29.34 kg/m Not at goal of bmi <30 Continue diet and exercise BMI Follow-up includes: nutrition counseling and exercise counseling. Assessment & Plan (07/17/2023 11:19 AM ELECTROTYPE SERVICER): Wt Readings from Last 3 Encounters: 07/17/23 [...] in your mouth on an kaushik like Endomedix or Novitazi carries a zero net carb bread If [...] in much longer they will become mushy [place] and/or coconut flour instead of regular flour [...] pork rinds For yogurt, try Two Good colombian yogurt Use Pinter[employer] for recipe ideas. Type in low carb... [...] 12/08/2017 Assessment & Plan (07/28/2024 11:26 AM ELECTROTYPE SERVICER): Lab Results Component Value Date WBC 5.0 [...] and Assessment & Plan (07/28/2024 11:25 AM ELECTROTYPE SERVICER): At goal at this time Has had some stress at home Celexa 40 mg every day Assessment & Plan (01/22/2024 10:50 AM CDT): At goal at this time Has had some stress at home Celexa 40 mg every day Cont inderal 20 mg tid, buspar 5 mg tid Assessment & Plan (07/22/2023 10:23 AM ELECTROTYPE SERVICER): Not at goal at this time Will increase celexa to 40 mg every day States that she has had periods of 'paranoia' , gets heart palpitations, feels hyper aware of her body and anxiety worsens Worsening sx Start buspar 5 mg tid Start propranolol Assessment & Plan (07/17/2023 11:18 AM ELECTROTYPE SERVICER): Not at goal at this time Will [...] recheck. Assessment & Plan (05/16/2022 10:57 AM ELECTROTYPE SERVICER): Increase sertraline to 100mg daily. Consider returning [...] months Assessment & Plan (05/05/2019 8:59 PM ELECTROTYPE SERVICER): Will restart zoloft. Start 50mg x 7 days, then increase to 100mg daily. Pt states she has family support and knows to seek help if she has suicidal ideations. I asked her to f/u in 1 month for recheck Assessment & Plan (05/18/2018 4:06 PM ELECTROTYPE SERVICER): I discussed referral to psychiatry with patient. She had a bad experience with a previous psychiatrist seen at [facility], now [facility]. I told her that I would [...] them the name of a psychiatrist in [place] if they wishes to see them. They [...] just had a full lab workup on 8/6 and all was normal. Will refer to neurology [facility]. Off work for 1 week. May call [...] 01/16/201805/05 Assessment & Plan (05/18/2018 4:03 PM ELECTROTYPE SERVICER): Discussed that sertraline can cause some increase hunger , but is not going to cause weight gain by itself. Taking it off of her is not going to cause weight loss magically either. Recommended seeing a manager control to discuss eating habits and to start [...] Overview (11/08/2016): JESSIE - Generalized anxiety disorder Encounters Date Type Department Care Team Description 07/28/2024 11:30 AM ELECTROTYPE SERVICER Office Visit [facility] Primary Care at [address] [place] [address] Blane Scott MD Depression with anxiety (Primary Dx); Class 1 obesity due to excess calories without serious comorbidity with body mass index (BMI) of 32.0 to 32.9 in adult; Iron deficiency; Preventative health care; Lipid screening; Need for influenza vaccination from Last 3 Months Immunizations Immunization Administration Dates Next Due DTaP [...] Conjugate Pcv20 10/23/2021 Tdap 12/04/2020,01/09/2011 Varicella 01/09/2011,01/01/2002 Medical History Medical History Date Comments Depression 2014 Anxiety Dysmenorrhea OCPs - Apri with placebo q 3rd pack. Has also tried Sprintec, Microgestin 1.5/30 and NuvaRing Class 1 obesity due to exces s calories without serious comorbidity with body mass index (BMI) of 34.0 to 34.9 in adult 05/01/2020 Family History Medical History Relation Name Comments Spina bifida Brother 1 Tourette syndrome Brother 1 Congenital heart disease Brother 2 bic uspid aortic valve Tourette syndrome Brother 2 Heart attack Father Hypertension Father Tourette syndrome Father Heart attack Maternal Grandfather Hypertension Maternal Grandfather Hyperlipidemia Mother Hypertension Mother Premature Mother 32 wk sponta neous labor Colon cancer Paternal Great-Grandfather Relation Name Status Comments Brother 1 Brother 2 Father Maternal Grandfather Mother Paternal Great-Grandfather Social History Tobacco Use Types Packs/Day Years [...] on file Legal Sex Female 2:32 AM ELECTROTYPE SERVICER Gender Identity Not on file Sexual Orientation Not on file Occupation Industry Job Start Date Job End Date Not on file Not on file Not on file Not on file Obstetrics History Para Term AB IAB SAB Ectopic Multiple Livin g Live Births 1 1 1 0 0 0 0 0 0 1 1 Date Outcome GA Total Labor Labor/2nd/3rd Weight Sex Type Anes PTL Shirley A1 A5 Name Clin 021 Term 37w 0d 0h 48m 0h 15m/0h 31m/0h 02m 2.821 kg (6 lb 3.5 oz) M Vag-S pont None N Livin g 8 9 MICHELLE WHITTAKER,B Karina Ramos MD Complications:Other (Comment ) Delivery Location:This Facil ity ([facility]) Comments 2020 - PROM, flavio augm entation. Last Filed Vital Signs Vital Sign Reading Time Taken Comments Blood Pressure 98/64 07/28/2024 11:00 AM ELECTROTYPE SERVICER Pulse 86 07/28/2024 11:00 AM ELECTROTYPE SERVICER Temperature 36.2 C (97.2 F) 04/20/2024 6:04 PM ELECTROTYPE SERVICER Respiratory Rate 16 07/28/2024 11:00 AM ELECTROTYPE SERVICER Oxygen Saturation 97% 07/28/2024 11:00 AM ELECTROTYPE SERVICER Inhaled Oxygen Concentration - - Weight 88.6 kg (195 lb 4.8 oz) 07/28/2024 11:00 AM ELECTROTYPE SERVICER Height 158.8 cm (5' 2.52 ) 07/28/2024 11:00 AM C Body Mass Index 35.13 07/28/2024 11:00 AM ELECTROTYPE SERVICER Plan of Treatment Health Maintenance Due Date Last Done Comments Meningococcal B Vaccine (1 o f 2 - Standard) 2016 Cervical Cancer Screening 01/18/2023 01/18/2022 Covid-19 Vaccine (3 2023-2 5 season) 2024 10/23/2021, 05/07/2021 Chlamydia and Gonorrhea (GC/ CT) Screening 01/27/2025 01/28/2024, 01/20/2023, 01/18/2022, Additional history exists Regular Well Visit/Exam 18-64 01/27/2025, 01/22/2024, 01/20/2023, Additional history exists Depression Screening 07/28/2025 07/28/2024, 01/22/2024, 07/22/2023, Additional history exists DTaP/Tdap/Td Vaccine (8 - Td or Tdap) 12/04/2030 12/04/2020, 01/09/2011, 10/01/2005, Additional history exists Hepatitis B Screening Completed 10/02/2001 , 10/02/2001, 02/03/2001, Additional history exists Varicella Vaccines Completed 01/09/2011, 01/01/2002 HPV Vaccines Completed 01/10/2017, 05/0 06/2016, 11/01/2014 Hepatitis C Screening Completed 05/01/2020 Pneumococcal vaccine <65 Completed 022, 07/08/2002, 07/08/2002, Additional history exists Influenza Vaccine Completed 07/28/2024, , 03/02/2020, Additional history exists Procedures Procedure Name Priority Date/Time Associated Diagnosis Comments N. GONORRHOEAE/C. TRACHOMATIS AMPLIFICATION Routine 01/28/2024 1:00 PM CDT Screening examination for venereal disease PAP WITH REFLEX TO HIGH RISK HPV Routine 01/18/2022 11:41 AM CDT Screening for malignant neoplasm of the cervix HEPATITIS C ANTIBODY Routine 05/01/2020 2:10 PM ELECTROTYPE SERVICER 8 weeks gestation of Encounter for supervision of normal first in first trimester from Last 3 Months or Most Recently Relevant to Health Maintenance Results * N. gonorrhoeae/C. trachomatis Amplification Endocervical (01/28/2024 1:00 PM CDT) C. trachomatis Not Detected [facility] Comment:Testing performed by : [facility], [address] [place] [address]., [id number] N. gonorrhoeae Not Detected MARK TARANGO Comment: Interpretive Data This assay detects Chlamydia trachomatis and Neisseria gonorrhoeae by nucleic acid amplification testing (NAAT). This assay has been cleared by the [place] Food and Drug administration. The performance characteristics of this test have been verified by the [facility] Molecular Infectious Disease laboratory. The performance characteristics of this test have not been evaluated in individuals less than 14 years of age. Current Interpretive Data was last revised on 2023. Testing performed by: [facility], [address] [place] [address]., [id number] Endocervical (None) 01/28/20 1:00 PM CDT 01/29/2024 9:59 AM CDT us Karina Hernandez MD LAB MICROBIOLOGY - NERAL ORDERABLES Final Result MARK TARANGO [id number] Department [place] [address] [facility] * Pap with reflex to High Risk HPV (01/18/2022 11:41 AM CDT) Thin prep (Pap test) 01/18/2022 11:41 AM CDT 01/18/2022 11:41 AM CDT Narrative PATHOLOGY CH - 01/22/2022 10:31 AM CDT [facility] Department of Pathology [address] [place], [place] [id number] Final Report Note to Patients: This report [...] the details. Patient Name: JOHANNY RAMOS Address: [address] [place] [address] Gender: F : 2000 (Age: 21) Service: Laboratory Location: Lab [facility] #: [id number] Patient Type: Ref Lab Taken: 01/18/2022 Received: 01/18/2022 Accessioned:: 01/21/2022 Reported: 01/22/2022 Physician(s): MD Karina Sanchez MD Diagnosis: Source of Specimen: Imaged Thinprep Pap Test w/ Reflex HPV - Digital Publishing Specialist Cytologic Material Specimen Adequacy: - Specimen satisfactory for interpretation; endocervical/transformation zone component absent or insufficient General Category: - Negative for intraepithelial lesion or malignancy Interpretation/Results: - Numerous RBC's DIAZ Tran(ASCP) Report Electronically Reviewed and Signed Out By DIAZ Tran(ASCP) 01/22/2022 10:31:39Specimen(s) Received: A: Imaged Thinprep Pap Test w/ Reflex HPV - Digital Publishing Specialist Cytologic Material Clinical History: Last Menstrual Period: [...] determined by the Surgical Pathology Department at [facility] as part of an ongoing quality control supervisor program and in compliance with federally mandated [...] characteristics determined by the Surgical Pathology Department [facility]. It has not been cleared or approved by the U. S. Food and Drug Administration. Karina Hernandez MD LAB CYTOLOGY ORDERABL ES Final Result PATHOLOGY [id number] [place] [address] * Hepatitis C antibody (05/01/2020 2:10 PM ELECTROTYPE SERVICER) Hep C Ab Nonreactive Nonreactive MARK TARANGO [...] 2019. Blood specimen (specimen) 05/01/2020 2:10 PM ELECTROTYPE SERVICER 05/01/2020 7:03 PM ELECTROTYPE SERVICER Karina Hernandez MD LAB MICROBIOLOGY - N[place] [id number] [address] Department [place] [address] from Last 3 Months or Most Recently Relevant to Health Maintenance Insurance [facility] PLAN OF CT [facility] Backdoor [facility] BLUE ACC[place] ANTHEM ACCESS CHOICE Advance Directives For more information, please contact: [phone] * Full Code (Latest Code Status on File) Date Activated Date Inactivated Comments 12/03/2020 12:01 AM 12/04/2020 11:17 PM * Full Code Date Activated Date Inactivated Comments 12/02/2020 1:51 PM 12/03/2020 12:01 AM Full CPR in case of cardiopulmonary arrest Care Teams Director Of Coding Relationship Specialty Start Date End Date Blane Scott MD [address] [facility] [place] [address] PCP - General Family Medicine 07/17/23
--- OUTSIDE RECORDS SUMMARY | 2024-09-02 12:32 | XMS_ITS | Clinical Summary ---
Author Organization [facility] Address [facility] [place] [address] Care Team Providers Care Practical Nursing Faculty Name Role Phone Laura Ramos [employer]IPPER Primary Care Provider [phone] Source Comments [facility],non-owned Affiliates and Associated Physician Practices is amultiple site organization consisting of ambulatory clinics and hospital sitesin [place], [place], [place] and [place]. This disclosure is being madepursuant to the Care Everywhere program and may not contain all information available regarding this patient. Last updated 18.[facility] Allergies No known active allergies Medications * Be aware that medications may not be up to date on this document. Alwaysverify current medications with the patient. Medication Sig Dispensed Refills Start Date End Date Status sertraline (ZOLOFT) 100 MG tablet Take 150 mg by mouth 10/15/2017 Active traZODone (DESYREL) 100 MG tablet Take 100 mg by mouth 10/15/2017 Active desogestrel-ethinyl estradiol (ORTHO-CEPT; DESOGEN; APRI; SOLIA; RECLIPSEN) 0.15-30 MG-MCG tablet Take 1 tablet by mouth 11/06/2017 Active clindamycin (CLEOCIN) 1 % lotion 10/15/2017 Acti ve benzonatate (TESSALON) 200 MG capsule Take 1 capsule by mouth 3 times daily as needed for Cough 30 capsule 11/28/2017 Active Social History Tobacco Use Types Packs/Day Years Used Date Smoking Tobacco: Never Smokeless Tobacco: Never Sex and Gender Information Value Date Recorded Sex Assigned at Not on file Gender Identity Not on file Sexual Orientation Not on file Last Filed Vital Signs Vital Sign Reading Time Taken Comments Blood Pressure 100/64 11/28/2017 2:47 PM CDT Pulse 88 11/28/2017 2:47 PM CDT Temperature 36.6 C (97.8 F) 11/28/2017 2:47 PM CDT Respiratory Rate - - Oxygen Saturation 97% 11/28/2017 2:47 PM CDT Inhaled Oxygen Concentration - - Weight 67.1 kg (148 lb) 11/28/2017 2:47 PM CDT Height 162.6 cm (5' 4 ) 11/28/2017 2:47 PM CDT Body Mass Index 25.4 11/28/2017 2:47 PM CDT Plan of Treatment Health Maintenance Due Date Last Done Comments PAP SMEAR 2000 HIV SCREENING 12/31/2015 HPV VACCINE (1 - 3-dose series) 12/31/2015 CHLAMYDIA/GONORRHEA SCREENING 2016 MENINGOCOCCAL (Group B) VACC INE SHARED DECISION-MAKING (1 of 2 - Standard) 2016 HEPATITIS C SCREENING 12/26/2018 DTAP/TDAP/TD VACCINES (1 - Tdap) 12/31/2019 HEPATITIS B VACCINE (1 of 3 - 19+ 3-dose series) 12/31/2019 COVID-19 VACCINE (1 - 2023-2 5 season) 2024 INFLUENZA VACCINE (#1) 2024 04/18/2010 DEPRESSION SCREENING 06/16/2024 ZOSTER VACCINE (1 of 2) 2050 HIB VACCINE Aged Out No longer eligi ble based on patient's age to complete this topic MENINGOCOCCAL GROUPS A/C/Y/W VACCINE Aged Out No longer eligible b ased on patient's age to complete this topic PNEUMOCOCCAL VACCINE Aged Out No long er eligible based on patient's age to complete this topic Care Teams Practical Nursing Faculty Relationship Specialty Start Date End Date Laura Ramos APRN-[facility] PCP - General Nurse Practitioner Family 11/28/17
== END 2024-09-02 12:42 | disposition home or self-care (01) ==
PROVIDERS: Emergency Provider Nurse Practitioner
DX: M67.431 Ganglion, right wrist (principal); S63.501A Unspecified sprain of right wrist, initial encounter; F17.290 Nicotine dependence, other tobacco product, uncomplicated; X50.0XXA Overexertion from strenuous movement or load, initial encounter; Y92.007 Garden or yard of unspecified non-institutional (private) residence as the place of occurrence of the external cause
CPT/HCPCS: 73110; 99213; G0463

== ENCOUNTER 2025-01-16 13:42 | Emergency (ER) | payer OTHER, SELFPAY ==
--- OUTSIDE RECORDS SUMMARY | 2025-01-16 13:44 | XMS_ITS | Clinical Summary ---
Author Organization [facility] [address] Address [address] [place] [address] Phone Care Team Providers Care Prefinish Operator Name Role Phone Blane Scott MD Primary Care Provider [phone] Allergies No known active allergies Medications etonogestreL-ethi [...] Paxlovid fact she sent to patient via [employer]. Treat symptoms with qrrr-cnq-tjvhqve medications. Go to nearest emergency room if signs or symptoms worsen. Irritable bowel syndrome with diarrhea Assessment & Plan (11/18/2022 11:50 AM CDT): Symptoms are stable. Assessment & Plan (05/16/2022 10:58 AM LEASING MACHINE TENDER): Increase fiber in diet. Decrease fatty/ greasy [...] 6 weeks for recheck and prn Class 2 obesity due to exces s calories without serious comorbidity with body mass index (BMI) of 35.0 to 35.9 in adult 05/01/2020 Assessment & Plan (12/21/2024 2:12 PM CDT): Wt Readings from Last 3 Encounters: 12/21/24 89.4 kg (197 lb) 07/28/24 88.6 kg (195 lb 4.8 oz) 04/20/24 87 kg (191 lb 12.8 oz) BMI Readings from Last 3 Encounters: 12/21/24 35.43 kg/m 07/28/24 35.13 kg/m 04/20/24 34.52 kg/m Not at goal of bmi <30 Continue diet and exercise BMI Follow-up includes: nutrition counseling and exercise counseling. Assessment & Plan (07/28/2024 11:24 AM LEASING MACHINE TENDER): Wt Readings from Last 3 Encounters: 07/28/24 [...] counseling. Assessment & Plan (07/22/2023 10:26 AM LEASING MACHINE TENDER): Wt Readings from Last 3 Encounters: 07/22/23 76.7 kg (169 lb) 07/17/23 77 kg (169 lb 11.2 oz) 04/09/23 73.9 kg (163 lb) BMI Readings from Last 3 Encounters: 07/22/23 30.40 kg/m 07/17/23 30.52 kg/m 04/09/23 29.34 kg/m Not at goal of bmi <30 Continue diet and exercise BMI Follow-up includes: nutrition counseling and exercise counseling. Assessment & Plan (07/17/2023 11:19 AM LEASING MACHINE TENDER): Wt Readings from Last 3 Encounters: 07/17/23 [...] in your mouth on an kaushik like [employer] or [employer] carries a zero net carb bread [...] in much longer they will become mushy [place] and/or coconut flour instead of regular flour [...] pork rinds For yogurt, try [employer] emirati yogurt Use Pinterest for recipe ideas. Type [...] 12/08/2017 Assessment & Plan (07/28/2024 11:26 AM LEASING MACHINE TENDER): Lab Results Component Value Date WBC 5.0 [...] and Assessment & Plan (07/28/2024 11:25 AM LEASING MACHINE TENDER): At goal at this time Has had some stress at home Celexa 40 mg every day Assessment & Plan (01/22/2024 10:50 AM CDT): At goal at this time Has had some stress at home Celexa 40 mg every day Cont inderal 20 mg tid, buspar 5 mg tid Assessment & Plan (07/22/2023 10:23 AM LEASING MACHINE TENDER): Not at goal at this time Will increase celexa to 40 mg every day States that she has had periods of 'paranoia' , gets heart palpitations, feels hyper aware of her body and anxiety worsens Worsening sx Start buspar 5 mg tid Start propranolol Assessment & Plan (07/17/2023 11:18 AM LEASING MACHINE TENDER): Not at goal at this time Will [...] recheck. Assessment & Plan (05/16/2022 10:57 AM LEASING MACHINE TENDER): Increase sertraline to 100mg daily. Consider returning [...] months Assessment & Plan (05/05/2019 8:59 PM LEASING MACHINE TENDER): Will restart zoloft. Start 50mg x 7 days, then increase to 100mg daily. Pt states she has family support and knows to seek help if she has suicidal ideations. I asked her to f/u in 1 month for recheck Assessment & Plan (05/18/2018 4:06 PM LEASING MACHINE TENDER): I discussed referral to psychiatry with patient. She had a bad experience with a previous psychiatrist [facility]. I told her that I would refer [...] them the name of a psychiatrist in [place] if they wishes to see them. They [...] normal. Will refer to neurology at [facility]. Off work for 1 week. May call [...] 01/16/201805/05 Assessment & Plan (05/18/2018 4:03 PM LEASING MACHINE TENDER): Discussed that sertraline can cause some increase hunger , but is not going to cause weight gain by itself. Taking it off of her is not going to cause weight loss magically either. Recommended seeing a mutual funds agent to discuss eating habits and to start [...] Encounters Date Type Department Care Team Description 12/22/2024 Results Follow-Up [facility] Primary Care at [address] [address] Blane Scott MD Iron profile w/ IBC, Magnesium, Vitamin D 25 hydroxy, Additional followed-up results: 3 12/21/2024 2:40 PM CDT Lab [address] [address] Numbness and tingling; Vitamin D deficiency; Iron deficiency 12/21/2024 2:34 PM CDT - 12/21/2024 11:59 PM CDT Hospital Encounter [facility] [address] [place] [address] Bilateral hand pain Discharge Disposition: Discharge to home or self care 12/21/2024 2:00 PM CDT Office Visit [facility] Primary Care at [address] [address] Blane Scott MD Iron deficiency (Primary Dx); Class 2 obesity due to excess calories without serious comorbidity with body mass index (BMI) of 35.0 to 35.9 in adult; Numbness and tingling; Bilateral hand pain; Vitamin D deficiency from Last 3 Months Immunizations Immunization Administration [...] Medical History Medical History Date Comments Depression 2015 Anxiety Dysmenorrhea OCPs - Apri with placebo q 3rd pack. Has also tried Sprintec, Microgestin 1.530 and NuvaRing Class 1 obesity due to [...] to Q uit: Not Asked; Counseling Given: Yes Alcohol Use Standard Drinks/Week Comments No 0 (1 standard drink = 0.6 oz pur e alcohol) AUDIT-C Answer Date Recorded Q1: How often do you have a drink containing alcohol? Never 12/21/2024 Q2: How many drinks containi ng alcohol do you have on a typical day when you are drinking? Patient does not drink Q3: How often do you have si x or more drinks on one occasion? Never 12/21/2024 PHQ-2 Answer Date Recorded PHQ-2 Total Score (If total score is 3 or more points, staff should administer the PHQ-9) 0 07/28/2024 Comments No Sex and Gender Information Value Date Recorded Sex Assigned at Not on file Legal Sex Female 2:32 AM LEASING MACHINE TENDER Gender Identity Not on file Sexual Orientation [...] pont None N Livin g 8 9 Johnny MARTINEZ [facility] , Karina camarena MD Complications:Other (Comment ) Delivery Location:This [facility] ([facility]) Comments 1. 2020 - PROM, pitocin augm entation. Last Filed Vital Signs Vital Sign Reading Time Taken Comments Blood Pressure 122/70 12/21/2024 2:08 PM CDT Pulse 81 12/21/2024 2:08 PM CDT Temperature 36.2 C (97.2 F) 04/20/2024 6:04 PM LEASING MACHINE TENDER Respiratory Rate 16 12/21/2024 2:08 PM CDT Oxygen Saturation 98% 12/21/2024 2:08 PM CDT Inhaled Oxygen Concentration - - Weight 89.4 kg (197 lb) 12/21/2024 2:08 PM CDT Height 158.8 cm (5' 2.52) 12/21/2024 2:08 PM CD T Body Mass Index 35.43 12/21/2024 2:08 PM CDT Plan of Treatment Health Maintenance Due Date Last Done Comments Cervical Cancer Screening 01/18/2023 01/18/2022 Covid-19 Vaccine (2023-2 5 season) 2024 10/23/2021, 05/07/2021 Chlamydia and Gonorrhea (GC/ CT) Screening 01/27/2025 01/28/2024, 01/20/2023, 01/18/2022, Additional history exists Regular Well Visit/Exam 18-64 01/27/2025, 01/22/2024, 01/20/2023, Additional history exists Influenza Vaccine (#1) 2025 , 04/04/2022, 03/02/2020, Additional history exists Depression Screening 07/28/2025 07/28/2024, 01/22/2024, 07/22/2023, Additional history exists DTaP/Tdap/Td Vaccine (8 - Td or Tdap) 12/04/2030 12/04/2020, 01/09/2011, 10/01/2005, Additional history exists Hepatitis B Screening Completed 10/02/2001 , 10/02/2001, 02/03/2001, Additional history exists Varicella Vaccines Completed 01/09/2011, 01/01/2002 HPV Vaccines Completed 01/10/2017, 06/2016, 11/01/2014 Hepatitis C Screening Completed 05/01/2020 Pneumococcal vaccine <65 Completed 022, 07/08/2002, 07/08/2002, Additional history exists Procedures Procedure Name Priority Date/Time Associated Diagnosis Comments XR HAND BILATERAL 3 OR MORE VIEWS OF EACH Schedule Routine, Read Routine (OP Routine) 12/21/2024 2:56 PM CDT Bilateral hand pain THYROID FUNCTION CASCADE Routine 12/21/2024 2:45 PM CDT Numbness and tingling VITAMIN E Routine 12/21/2024 2:45 PM CDT Numbness and tingling VITAMIN B1 Routine 12/21/2024 2:45 PM CDT Numbness and tingling VITAMIN B6 Routine 12/21/2024 2:45 PM CDT Numbness and tingling VITAMIN B12 Routine 12/21/2024 2:45 PM CDT Numbness and tingling VITAMIN D 25 HYDROXY Routine 12/21/2024 2:45 PM CDT Vitamin D deficiency MAGNESIUM Routine 12/21/2024 2:45 PM CDT Numbness and tingling IRON PROFILE W/ IBC Routine 12/21/2024 2 :45 PM CDT Iron deficiency Numbness and tingling N. GONORRHOEAE/C. TRACHOMATIS AMPLIFICATION Routine 01/28/2024 1:00 PM CDT Screening examination for venereal disease PAP WITH REFLEX TO HIGH RISK HPV Routine 01/18/2022 11:41 AM CDT Screening for malignant neoplasm of the cervix HEPATITIS C ANTIBODY Routine 05/01/2020 2:10 PM LEASING MACHINE TENDER 8 weeks gestation of Encounter for supervision of normal first in first trimester from Last 3 Months or Most Recently Relevant to Health Maintenance Results * XR Hand Bilateral 3 or More Views of Each (12/21/2024 2:56 PM CDT) Anatomical Region Laterality Modality Upper Extremities, Hand Computed Radiography 12/26/2024 12:5 1 PM CDT Narrative 12/26/2024 12:54 PM CDT EXAM DESCRIPTION: 1. XR HAND BILATERAL 3 OR MORE VIEWS OF EACH REASON FOR STUDY: bilateral hand pain, morning stiffness C/o numbness and pain in both hands x1 month. Pain in joints. Pain in right hand radiates up into elbow. No previous surgeries or injuries FINDINGS: Three views each hand submitted without comparison. Left hand: No erosions. No acute fracture. Alignment is normal. The joint spaces are normal. No dorsal wrist soft tissue swelling. Right hand: No erosions. No acute fracture. Alignment is normal. The joint spaces are normal. No dorsal wrist soft tissue swelling. IMPRESSION: 1. No radiographic evidence of inflammatory arthritis. THIS IS AN ELECTRONICALLY VERIFIED FINAL REPORT 12/26/2024 12:54 PM - Electronically signed by Aravind Skelton M.D. MF: [email or web address] Report ID: [id number] Reading Location: [id number] Procedure Note Aravind Skelton MD - 12/26/2024 EXAM DESCRIPTION: 1. XR HAND BILATERAL 3 OR MORE VIEWS OF EACH REASON FOR STUDY: bilateral hand pain, morning stiffness C/o numbness and pain in both hands x1 month. Pain in joints. Pain inright hand radiates up into elbow. No previous surgeries or injuries FINDINGS: Three views each hand submitted without comparison. Left hand: No erosions. No acute fracture. Alignment is normal. The joint spacesare normal. No dorsal wrist soft tissue swelling. Right hand: No erosions. No acute fracture. Alignment is normal. The joint spacesare normal. No dorsal wrist soft tissue swelling. IMPRESSION: 1. No radiographic evidence of inflammatory arthritis. THIS IS AN ELECTRONICALLY VERIFIED FINAL REPORT 12/26/2024 12:54 PM - Electronically signed by Aravind Skelton M.D. MF: [email or web address] Report ID: [id number] Reading Location: [place] [address] us Blane Scott MD IMG XR PROCEDURES Final Result * Thyroid Function [place] (12/21/2024 2:45 PM CDT) TSH 1.26 0.30 - 4.20 mcIUnit/mL Blood 12/21/2024 2:45 PM CDT 12/21/2024 2:49 PM CDT us Blane Scott MD LAB BLOOD ORDERABLES Final Resul t [facility] ([place]) 1 [facility] [place] [address] * Iron profile w/ IBC (12/21/2024 2:45 PM CDT) [facility] Iron 92 35 - 145 mcg/dL TIBC 317 250 - 400 mcg/dL [facility] ([place]) Transferrin saturation 29 20 - 50 % [facility] Blood 12/21/2024 2:45 PM CDT 12/21/2024 2:49 PM CDT Blane Scott MD LAB BLOOD ORDERABLES Final Resul t [facility] ([place]) 1 [facility] [place] [address] * (ABNORMAL) Vitamin D 25 hydroxy (12/21/2024 2:45 PM CDT) [facility] Vitamin D 25-OH 27(L) 30 - 80 ng/mL Blood 12/21/2024 2:4 5 PM CDT 12/21/2024 2:49 PM CDT Blane Scott MD LAB BLOOD ORDERABLES Final Resul t [facility] ([place]) [address] [place] [address] * Vitamin E (12/21/2024 2:45 PM CDT) [facility] Tocopherol (Vit E) 8.5 5.5 - 17.0 mg/L [place] ref Lab Comment: ADDITIONAL INFORMATION This test was developed and its performance characteristics determined by [facility] in a manner consistent with CLIA requirements. This test has not been cleared or approved by the U.S. Food and Drug Administration. Test Performed by: [facility] - [address] [address] Coal Chemist: Marlys Thakur Ph.D.; CLIA# [id number] Blood 12/21/2024 2:45 PM CDT 12/21/2024 2:49 PM CDT Blane Scott MD LAB BLOOD ORDERABLES Final Resul t Performing Organization Address [facility] de Phone Number [facility] ([place]) [address] [facility] [place] [address] [facility] * Vitamin B1 (12/21/2024 2:45 PM CDT) Thiamine (Vit B1) 135 70 - 180 nmol/L [place] [facility] Comment: ADDITIONAL INFORMATION This test was developed and its performance characteristics determined by [facility] in a manner consistent with CLIA requirements. This test has not been cleared or approved by the U.S. Food and Drug Administration. Test Performed by: [facility] - [facility] [address] [place] [address] Coal Chemist: Marlys Thakur Ph.D.; CLIA# [id number] Blood 12/21/2024 2:45 PM CDT 12/21/2024 2:49 PM CDT Blane Scott MD LAB BLOOD ORDERABLES Final Resul t Performing Organization Address [facility] de Phone Number [facility] ([place]) 1 [facility] [place] [address] [facility] * Vitamin B6 (12/21/2024 2:45 PM CDT) Pyridoxal phosphate (Vit B6) 5 5 - 50 mcg/L [place] [facility] Comment: ADDITIONAL INFORMATION This test was developed and its performance characteristics determined by [facility] in a manner consistent with CLIA requirements. This test has not been cleared or approved by the U.S. Food and Drug Administration. Test Performed by: [facility] [address] [place] [address] Coal Chemist: Marlys Thakur Ph.D.; CLIA# [id number] Blood 12/21/2024 2:45 PM CDT 12/21/2024 2:49 PM CDT Blane Scott MD LAB BLOOD ORDERABLES Final Resul t [facility] ([place]) [address] [place] [address] [facility] * Magnesium (12/21/2024 2:45 PM CDT) Pathologist [facility] Magnesium 2.0 1.4 - 2.5 mg/dL Blood 12/21/2024 2:45 PM CDT 12/21/2024 2:49 PM CDT Blane Scott MD LAB BLOOD ORDERABLES Final Resul t Performing Organization Address [facility] Co de Phone Number [facility] ([place]) 1 [facility] [place] [address] * Vitamin B12 (12/21/2024 2:45 PM CDT) Vitamin B12 292 230 - 1,250 pg/mL Blood 12/21/2024 2:45 PM CDT 12/21/2024 2:49 PM CDT Blane Scott MD LAB BLOOD ORDERABLES Final Resul t Performing Organization Address City/[facility]/ZIP Co de Phone Number [facility] ([place]) [address] [facility] [place] [address] * N. gonorrhoeae/C. trachomatis Amplification Endocervical (01/28/2024 1:00 PM CDT) C. trachomatis Not Detected [facility] Comment:Testing performed by : [facility], [address] [place]., [address] N. gonorrhoeae Not Detected [facility] Comment: Interpretive Data This assay detects Chlamydia trachomatis and Neisseria gonorrhoeae by nucleic acid amplification testing (NAAT). This assay has been cleared by the [place] Food and Drug administration. The performance characteristics of this test have been verified by the [facility] Molecular Infectious Disease laboratory. The performance characteristics of this test have not been evaluated in individuals less than 14 years of age. Current Interpretive Data was last revised on 2023. Testing performed by: [facility], [address] [place]., [address] Endocervical (None) 01/28/20 24 1:00 PM CDT 01/29/2024 9:59 AM CDT Karina Hernandez MD LAB MICROBIOLOGY - [facility] ORDERABLES Final Result [facility] [id number] [place] [address] Department [place] [address] [facility] * Pap with reflex to High Risk HPV (01/18/2022 11:41 AM CDT) Thin prep (Pap test) 01/18/2022 11:41 AM CDT 01/18/2022 11:41 AM CDT Narrative PATHOLOGY - 01/22/2022 10:31 AM CDT [facility] Department of Pathology [address] [place] [address] Final Report Note to Patients: This [...] the details. Patient Name: JOHANNY RAMOS Address: [address] [place] [address] Gender: F : 2000 (Age: 21) Service: Laboratory Location: Lab Hospital #: [id number] Patient Type: SUKHDEEP Ref Lab Taken: 01/18/2022 Received: 01/18/2022 Accessioned:: 01/21/2022 Reported: 01/22/2022 Physician(s): MD Karina Sanchez MD Diagnosis: Source of Specimen: Imaged Thinprep Pap Test w/ Reflex HPV - Economics Teacher Cytologic Material Specimen Adequacy: - Specimen satisfactory for interpretation; endocervical/transformation zone component absent or insufficient General Category: - Negative for intraepithelial lesion or malignancy Interpretation/Results: - Numerous RBC's DIAZ Tran(ASCP) Report Electronically Reviewed and Signed Out By DIAZ Tran(ASCP) 01/22/2022 10:31:39Specimen(s) Received: A: Imaged Thinprep Pap Test w/ Reflex HPV - Economics Teacher Cytologic Material Clinical History: Last Menstrual Period: [...] as part of an ongoing quality assurance analyst program and in compliance with federally mandated [...] characteristics determined by the Surgical Pathology Department [facility]. It has not been cleared or approved by the [place]. S. Food and Drug Administration. Karina Hernandez MD LAB CYTOLOGY ORDERABL ES Final Result Performing Organization Address [facility] de Phone Number PATHOLOGY [address] [place] [address] * Hepatitis C antibody (05/01/2020 2:10 PM LEASING MACHINE TENDER) Hep C Ab Nonreactive Nonreactive [facility] [...] 2019. Blood specimen (specimen) 05/01/2020 2:10 PM LEASING MACHINE TENDER 05/01/2020 7:03 PM LEASING MACHINE TENDER Karina Hernandez MD LAB MICROBIOLOGY - [facility] ORDERABLES Final Result Performing Organization Address [facility] de Phone Number [facility] [address] [place] [address] from Last 3 Months or Most Recently Relevant to Health Maintenance Insurance [facility] [employer] Pongo Resume [facility] Advance Directives For more information, please contact: [phone] * Full Code (Latest Code Status on File) Date Activated Date Inactivated Comments 12/03/2020 12:01 AM 12/04/2020 11:17 PM * Full Code Date Activated Date Inactivated Comments 12/02/2020 1:51 PM 12/03/2020 12:01 AM Full CPR in case of cardiopulmonary arrest Care Teams Prefinish Operator Relationship Specialty Start Date End Date Blane Scott MD [address] [place] [address] [place] [id number] PCP - General Family Medicine 07/17/23
--- OUTSIDE RECORDS SUMMARY | 2025-01-16 13:44 | XMS_ITS | Clinical Summary ---
Author Organization [facility] Address [address] [place] [address] Phone Care Team Providers Care Cipher Expert Name Role Phone Blane Scott MD Primary Care Provider [phone] Allergies No known active allergies Medications naproxen [...] Comments Blood Pressure 105/64 08/13/2023 2:30 PM RESTAURANT SHIFT SUPERVISOR Pulse 70 08/13/2023 2:30 PM RESTAURANT SHIFT SUPERVISOR Temperature 36.5 C (97.7 F) 08/13/2023 11:38 AM RESTAURANT SHIFT SUPERVISOR Respiratory Rate 17 08/13/2023 2:30 PM RESTAURANT SHIFT SUPERVISOR Oxygen Saturation 99% 08/13/2023 2:30 PM RESTAURANT SHIFT SUPERVISOR Inhaled Oxygen Concentration - - Weight 72.6 kg (160 lb) 08/13/2023 11:34 AM RESTAURANT SHIFT SUPERVISOR Height 160 cm (5' 3) 08/13/2023 11:34 AM RESTAURANT SHIFT SUPERVISOR Body Mass Index 28.34 08/13/2023 11:34 AM RESTAURANT SHIFT SUPERVISOR Plan of Treatment Health Maintenance Due Date Last Done Comments Hepatitis C Virus (HCV) Screening 2000 Pap Smear 2021 SARS-COV-2 Immunization ( season) 2024 10/23/2021, 05/07/2021 Influenza Immunization (#1) 02/14/202503/17, 03/02/2020, 03/16/2019, Additional history exists Respiratory Syncytial Virus (RSV) Immunization (Adult) (1 [...] this topic Insurance MEDICA[employer] Care Teams Cipher Expert Relationship Specialty Start Date End Date Blane Scott MD [address] [facility] [address] [place] [address] [place] [id number] PCP - General Machine Carton Marker 02/16/22
--- OUTSIDE RECORDS SUMMARY | 2025-01-16 13:44 | XMS_ITS | Referral Summary ---
Author Organization [facility] [address] Address [address] [place] [address] Phone Care Team Providers Care Surgical Elastic Knitter Name Role Phone Blane Scott MD Primary Care Provider [phone] Encounters Date Type Department Care Team Description 12/22/2024 Results Follow-Up [facility] Medical [facility] Primary Care at [address] [phone] Blane Scott MD Iron profile w/ IBC, Magnesium, Vitamin D 25 hydroxy, Additional followed-up results: 3 12/21/2024 2:40 PM CDT Lab [address] [id number] Numbness and tingling; Vitamin D deficiency; Iron deficiency 12/21/2024 2:34 PM CDT - 12/21/2024 11:59 PM CDT Hospital Encounter [facility] [address] [place] [id number] Bilateral hand pain Discharge Disposition: Discharge to home or self care 12/21/2024 2:00 PM CDT Office Visit [facility] Medical Group Primary Care at [address] [place] [phone] Blane Scott MD Iron deficiency (Primary Dx); Class 2 obesity due to excess calories without serious comorbidity with body mass index (BMI) of 35.0 to 35.9 in adult; Numbness and tingling; Bilateral hand pain; Vitamin D deficiency from Last 3 Months Allergies No known [...] Paxlovid fact she sent to patient via [employer]. Treat symptoms with gjnz-iyy-rcwlrwl medications. Go to nearest emergency room if signs or symptoms worsen. Irritable bowel syndrome with diarrhea 2 Assessment & Plan (11/18/2022 11:50 AM CDT): Symptoms are stable. Assessment & Plan (05/16/2022 10:58 AM COMMERCIAL PRODUCER): Increase fiber in diet. Decrease fatty/ greasy [...] counseling. Assessment & Plan (07/28/2024 11:24 AM COMMERCIAL PRODUCER): Wt Readings from Last 3 Encounters: 07/28/24 [...] counseling. Assessment & Plan (07/22/2023 10:26 AM COMMERCIAL PRODUCER): Wt Readings from Last 3 Encounters: 07/22/23 76.7 kg (169 lb) 07/17/23 77 kg (169 lb 11.2 oz) 04/09/23 73.9 kg (163 lb) BMI Readings from Last 3 Encounters: 07/22/23 30.40 kg/m 07/17/23 30.52 kg/m 04/09/23 29.34 kg/m Not at goal of bmi <30 Continue diet and exercise BMI Follow-up includes: nutrition counseling and exercise counseling. Assessment & Plan (07/17/2023 11:19 AM COMMERCIAL PRODUCER): Wt Readings from Last 3 Encounters: 07/17/23 [...] in your mouth on an kaushik like [employer] or [employer] carries a zero net carb bread If [...] in much longer they will become mushy [place] and/or coconut flour instead of regular flour [...] pork rinds For yogurt, try Two Good irish yogurt Use Pinterest for recipe ideas. Type [...] 12/08/2017 Assessment & Plan (07/28/2024 11:26 AM COMMERCIAL PRODUCER): Lab Results Component Value Date WBC 5.0 [...] and Assessment & Plan (07/28/2024 11:25 AM COMMERCIAL PRODUCER): At goal at this time Has had some stress at home Celexa 40 mg every day Assessment & Plan (01/22/2024 10:50 AM CDT): At goal at this time Has had some stress at home Celexa 40 mg every day Cont inderal 20 mg tid, buspar 5 mg tid Assessment & Plan (07/22/2023 10:23 AM COMMERCIAL PRODUCER): Not at goal at this time Will increase celexa to 40 mg every day States that she has had periods of 'paranoia' , gets heart palpitations, feels hyper aware of her body and anxiety worsens Worsening sx Start buspar 5 mg tid Start propranolol Assessment & Plan (07/17/2023 11:18 AM COMMERCIAL PRODUCER): Not at goal at this time Will [...] recheck. Assessment & Plan (05/16/2022 10:57 AM COMMERCIAL PRODUCER): Increase sertraline to 100mg daily. Consider returning [...] months Assessment & Plan (05/05/2019 8:59 PM COMMERCIAL PRODUCER): Will restart zoloft. Start 50mg x 7 days, then increase to 100mg daily. Pt states she has family support and knows to seek help if she has suicidal ideations. I asked her to f/u in 1 month for recheck Assessment & Plan (05/18/2018 4:06 PM COMMERCIAL PRODUCER): I discussed referral to psychiatry with patient. She had a bad experience with a previous psychiatrist seen at [facility]. I told her that I would refer [...] them the name of a psychiatrist in [place] if they wishes to see them. They [...] 01/16/201805/05 Assessment & Plan (05/18/2018 4:03 PM COMMERCIAL PRODUCER): Discussed that sertraline can cause some increase hunger , but is not going to cause weight gain by itself. Taking it off of her is not going to cause weight loss magically either. Recommended seeing a school year nanny to discuss eating habits and to start [...] on file Legal Sex Female 2:32 AM COMMERCIAL PRODUCER Gender Identity Not on file Sexual Orientation Not on file Occupation Industry Job Start Date Job End Date Not on file Not on file Not on file Not on file Last Filed Vital Signs Vital Sign Reading Time Taken Comments Blood Pressure 122/70 12/21/2024 2:08 PM CDT Pulse 81 12/21/2024 2:08 PM CDT Temperature 36.2 C (97.2 F) 04/20/2024 6:04 PM COMMERCIAL PRODUCER Respiratory Rate 16 12/21/2024 2:08 PM CDT Oxygen Saturation 98% 12/21/2024 2:08 PM CDT Inhaled Oxygen Concentration - - Weight 89.4 kg (197 lb) 12/21/2024 2:08 PM CDT Height 158.8 cm (5' 2.52) 12/21/2024 2:08 PM CD T Body Mass Index 35.43 12/21/2024 2:08 PM CDT Plan of Treatment Not on file Procedures [...] HEPATITIS C ANTIBODY Routine 05/01/2020 2:10 PM COMMERCIAL PRODUCER 8 weeks gestation of Encounter for supervision [...] Aravind Skelton M.D. MF: [id number]-CLAUDE Report ID: [id number] Reading Location: [id number] Procedure Note Aravind Skelton MD - 12/26/2024 [...] Aravind Skelton M.D. MF: [email or web address]-CLAUDE Report ID: [id number] Reading Location: [place] [address] Blane Scott MD IMG XR PROCEDURES Final Result * Thyroid Function [place] (12/21/2024 2:45 PM CDT) TSH 1.26 0.30 - 4.20 mcIUnit/mL Blood 12/21/2024 2:45 PM CDT 12/21/2024 2:49 PM CDT Blane Scott MD LAB BLOOD ORDERABLES Final Resul t Performing Organization Address City/[facility] Co de Phone Number [facility] ([place]) 1 [facility] [place] [address] * Iron profile w/ IBC (12/21/2024 2:45 PM CDT) Iron 92 35 - 145 mcg/dL TIBC 317 250 - 400 mcg/dL [facility] ([place]) Transferrin saturation 29 20 - 50 % [facility] ([place]) Blood 12/21/2024 2:45 PM CDT 12/21/2024 2:49 PM CDT us Blane Scott MD LAB BLOOD ORDERABLES Final Resul t [facility] ([place]) [address] [facility] [place] [address] * (ABNORMAL) Vitamin D 25 hydroxy (12/21/2024 2:45 PM CDT) [facility] Vitamin D 25-OH 27(L) 30 - 80 ng/mL Blood 12/21/2024 2:45 PM CDT 12/21/2024 2:49 PM CDT Blane Scott MD LAB BLOOD ORDERABLES Final Resul t Performing Organization Address City/[facility]/ZIP Co de Phone Number [facility] ([place]) 1 [facility] [place] [address] * Vitamin E (12/21/2024 2:45 PM CDT) [facility] Tocopherol (Vit E) 8.5 5.5 - 17.0 mg/L [place] ref Lab Comment: ADDITIONAL INFORMATION This test was developed and its performance characteristics determined by [facility] in a manner consistent with CLIA requirements. This test has not been cleared or approved by the U.S. Food and Drug Administration. Test Performed by: [facility] - [address] [address] [place] Dispenser: Marlys Thakur Ph.D.; CLIA# [id number] Blood 12/21/2024 2:45 PM CDT 12/21/2024 2:49 PM CDT Blane Scott MD LAB BLOOD ORDERABLES Final Resul t [facility] ([place]) 1 [facility] [place] [address] [facility] * Vitamin B1 (12/21/2024 2:45 PM CDT) [facility] Thiamine (Vit B1) 135 70 - 180 nmol/L [place] ref Lab Comment: ADDITIONAL INFORMATION This test was developed and its performance characteristics determined by [facility] in a manner consistent with CLIA requirements. This test has not been cleared or approved by the U.S. Food and Drug Administration. Test Performed by: [facility] [place] [address] [place] Dispenser: Marlys Thakur Ph.D.; CLIA# [id number] Blood 12/21/2024 2:45 PM CDT 12/21/2024 2:49 PM CDT Blane Scott MD LAB BLOOD ORDERABLES Final Resul t Performing Organization Address [facility] Co de Phone Number [facility] ([place]) 1 [facility] [place] [address] [facility] ref [facility] * Vitamin B6 (12/21/2024 2:45 PM CDT) Pathologist [facility] Pyridoxal phosphate (Vit B6) 5 5 - 50 mcg/L [place] ref Lab Comment: ADDITIONAL INFORMATION This test was developed and its performance characteristics determined by [facility] in a manner consistent with CLIA requirements. This test has not been cleared or approved by the U.S. Food and Drug Administration. Test Performed by: [facility] [place] [address] [place] Dispenser: Marlys Thakur Ph.D.; CLIA# [id number] Blood 12/21/2024 2:45 PM CDT 12/21/2024 2:49 PM CDT us Blane Scott MD LAB BLOOD ORDERABLES Final Resul t Performing Organization Address [facility] Co de Phone Number [facility] ([place]) 1 [facility] [place] [address] [facility] ref [facility] * Magnesium (12/21/2024 2:45 PM CDT) Magnesium 2.0 1.4 - 2.5 mg/dL Blood 12/21/2024 2:45 PM CDT 12/21/2024 2:49 PM CDT Blane Scott MD LAB BLOOD ORDERABLES Final Resul t [facility] ([place]) 1 [facility] [place] [address] * Vitamin B12 (12/21/2024 2:45 PM CDT) Pathologist [facility] Vitamin B12 292 230 - 1,250 pg/mL Blood 12/21/2024 2:45 PM CDT 12/21/2024 2:49 PM CDT Blane Scott MD LAB BLOOD ORDERABLES Final Resul t Performing Organization Address City/State/[facility] Co de Phone Number [facility] ([place]) 1 [facility] [place] [address] * N. gonorrhoeae/C. trachomatis Amplification Endocervical (01/28/2024 1:00 PM CDT) Pathologist [facility] C. trachomatis Not Detected [facility] Comment:Testing performed by : [facility], [address] [facility]., [address] N. gonorrhoeae Not Detected [facility] Comment: Interpretive Data This assay detects Chlamydia trachomatis and Neisseria gonorrhoeae by nucleic acid amplification testing (NAAT). This assay has been cleared by the [place] Food and Drug administration. The performance characteristics of this test have been verified by the [facility] Molecular Infectious Disease laboratory. The performance characteristics of this test have not been evaluated in individuals less than 14 years of age. Current Interpretive Data was last revised on 2023. Testing performed by: [facility], [address] [facility]., [address] Endocervical (None) 01/28/20 24 1:00 PM CDT 01/29/2024 9:59 AM CDT Karina Hernandez MD LAB MICROBIOLOGY - [facility] ORDERABLES Final Result [facility] [address] Department [place] [address] BJ * Pap with reflex to High Risk HPV (01/18/2022 11:41 AM CDT) Thin prep (Pap test) 01/18/2022 11:41 AM CDT 01/18/2022 11:41 AM CDT Narrative PATHOLOGY - 01/22/2022 10:31 AM CDT [facility] Department of Pathology [address] [place] [address] Final Report Note to Patients: This [...] the details. Patient Name: JOHANNY RAMOS Address: [address] [place] [address] Gender: F : 2000 (Age: 21) Service: Laboratory Location: Lab Hospital #: [id number] Patient Type: Ref Lab Taken: 01/18/2022 Received: 01/18/2022 Accessioned:: 01/21/2022 Reported: 01/22/2022 Physician(s): MD Karina Sanchez MD Diagnosis: Source of Specimen: Imaged Thinprep Pap Test w/ Reflex HPV - Amphibious Operations Officer Cytologic Material Specimen Adequacy: - Specimen satisfactory for interpretation; endocervical/transformation zone component absent or insufficient General Category: - Negative for intraepithelial lesion or malignancy Interpretation/Results: - Numerous RBC's DIAZ Tran(ASCP) Report Electronically Reviewed and Signed Out By DIAZ Tran(ASCP) 01/22/2022 10:31:39Specimen(s) Received: A: Imaged Thinprep Pap Test w/ Reflex HPV - Amphibious Operations Officer Cytologic Material Clinical History: Last Menstrual [...] determined by the Surgical Pathology Department at [facility] as part of an ongoing director software quality assurance program and in compliance with federally mandated [...] the [place]. S. Food and Drug Administration. us Karina Hernandez MD LAB CYTOLOGY ORDERABL ES Final Result PATHOLOGY [address] [place] [address] * Hepatitis C antibody (05/01/2020 2:10 PM COMMERCIAL PRODUCER) Hep C Ab Nonreactive Nonreactive [facility] [...] 2019. Blood specimen (specimen) 05/01/2020 2:10 PM COMMERCIAL PRODUCER 05/01/2020 7:03 PM COMMERCIAL PRODUCER Karina Hernandez MD LAB MICROBIOLOGY - [place] ORDERABLES Final Result [facility] [address] [address] Department [place] [address] from Last 3 Months or Most Recently Relevant to Health Maintenance Insurance [facility] PLAN [facility] [place] [facility] Advance Directives For more information, please contact: [phone] * Full Code (Latest Code Status on File) Date Activated Date Inactivated Comments 12/03/2020 12:01 AM 12/04/2020 11:17 PM * Full Code Date Activated Date Inactivated Comments 12/02/2020 1:51 PM 12/03/2020 12:01 AM Full CPR in case of cardiopulmonary arrest Care Teams Surgical Elastic Knitter Relationship Specialty Start Date End Date Blane Scott MD [address] [place] [address] [place] [address] PCP - General Family Medicine 07/17/23
--- OUTSIDE RECORDS SUMMARY | 2025-01-16 13:45 | XMS_ITS | Clinical Summary ---
Author Organization [facility] Address [address] [facility] [place] [address] Care Team Providers Care Grinding Machine Operator Portable Name Role Phone Laura Ramos PITO-DOCKET SPECIALIST Primary Care Provider [phone] Source Comments [facility],non-owned Affiliates and Associated Physician Practices is amultiple site organization consisting of ambulatory clinics and hospital sitesin [place], [place], [place] and [place]. This disclosure is being madepursuant to the Care Everywhere program and may not contain all information available regarding this patient. Last updated 18.[facility] Allergies No known active allergies Medications * Be aware that medications may not be up to date on this document. Alwaysverify current medications with the patient. sertraline (ZOLOFT) 100 MG tablet Take 150 mg by mouth 10/15/2017 Active traZODone (DESYREL) 100 MG tablet Take 100 mg by mouth 10/15/2017 Active desogestrel-eth inyl estradiol (ORTHO-CEPT; DESOGEN; APRI; SOLIA; RECLIPSEN) 0.15-30 MG-MCG tablet Take 1 tablet by mouth 11/06/2017 Active clindamycin (CLEOCIN) 1 % lotion 10/15/2017 Active benzonatate (TESSALON) 200 MG capsule Take 1 capsule by mouth 3 times daily as needed for Cough 30 capsule 11/28/2017 Active Social History Tobacco Use Types Packs/Day Years Used Date Smoking Tobacco: Never Smokeless Tobacco: Never Comments No Sex and Gender Information Value Date Recorded Sex Assigned at Not on file Legal Sex Female 2:24 PM CDT Gender Identity Not on file Sexual [...] 2:47 PM CDT Height 162.6 cm (5' 4) 11/28/2017 2:47 PM CDT Body Mass Index 25.4 11/28/2017 2:47 PM CDT Plan of Treatment Health Maintenance Due Date Last Done Comments HIV SCREENING 12/31/2015 HPV VACCINE (1 - 3-dose series) 12/31/2015 CHLAMYDIA/GONORRHEA SCREENING 2016 HEPATITIS C SCREENING 12/26/2018 DTAP/TDAP/TD VACCINES (1 - Tdap) 12/31/2019 HEPATITIS B VACCINE (1 of 3 - 19+ 3-dose series) 12/31/2019 COVID-19 VACCINE (1 - 2023-2 5 season) 2024 DEPRESSION SCREENING 06/16/2024 INFLUENZA VACCINE (#1) 2025 04/18/2010 ZOSTER VACCINE (1 of 2) 2050 HIB VACCINE Aged Out No longer eligi ble based on patient's age to complete this topic MENINGOCOCCAL (Group B) VACC INE SHARED DECISION-MAKING Aged Out No longer eligibl e based on patient's age to complete this topic MENINGOCOCCAL GROUPS A/C/Y/W VACCINE Aged Out No longer eligible b ased on patient's age to complete this topic PNEUMOCOCCAL VACCINE Aged Out No long er eligible based on patient's age to complete this topic Insurance ANTHEM Care Teams Grinding Machine Operator Portable Relationship Specialty Start Date End Date Laura Ramos APRN-CNP PCP - General Nurse Practitioner Family 11/28/17
[2025-01-16 13:50] VITALS: BP 133/64; PULSE 92; RESP 12; TEMP 36.2; O2SAT 100
--- NOTE | 2025-01-16 14:15 | ED.GENADULT ---
HPI - General Adult General Chief complaint: Ear Stated complaint: Neck Pain/Left Ear Pain/Headache Source: patient Mode of arrival: ambulatory Limitations: no limitations History of Present Illness HPI narrative: Pt presents for evaluation of left sided ear pain. She woke from sleep yesterday with a frontal headache. She has a history of headaches and current symptoms are consistent with those experience with previous headaches. She states that her symptoms are sharp, rated 4/10 in severity. She woke from sleep yesterday morning with some left-sided neck pain. Today she noted sharp pain in left ear with some muffled hearing on that side. She denies any fever, chills, sore throat or respiratory symptoms. She does vape. Related Data Home Medications ?Medication ?Instructions ?Recorded ?Confirmed ?Last Taken ?Type citalopram 40 mg tablet mg 06/10/24 Unknown History etonogestrel 0.12 mg-ethinyl vag ring vaginal 06/10/24 Unknown History estradiol 0.015 mg/24 hr vaginal ring (EluRyng) Allergies Allergy/AdvReac Type Severity Reaction Status Date / Time No Known Drug Allergies Allergy Unknown Verified 01/16/25 13:54 Review of Systems Review of Systems: CONSTITUTIONAL: Denies fever, chills, or sweats. EYES: Denies visual changes, redness, or discharge. ENT: Reports left sided ear pain with some muffled hearing on that side. Denies sore throat. CARDIOVASCULAR: Denies chest pain, palpitations, or edema. RESPIRATORY: Denies cough or dyspnea. GASTROINTESTINAL: Denies abdominal pain, nausea, vomiting, or diarrhea. GENITOURINARY: Denies dysuria or hematuria. SKIN: Denies rash or itching. MUSCULOSKELETAL: Reports left sided neck pain. Denies back pain, joint pain, or myalgia. NEUROLOGIC: Reports headache. Denies numbness, dizziness, or weakness. PSYCHIATRIC: Denies anxiety or depression. [facility] Past Medical History Medical History Anxiety and depression OCD (obsessive compulsive disorder) Surgical History Surgical History No pertinent past surgical history Family History Family History Mother Family history non-contributory Social History Social History Smoking status: Current every day smoker Tobacco type: e-cigarettes/vaping Alcohol intake: unknown Substance use: unknown Gender identity (if verbalized by the patient): Female Spiritual care concerns: No Exam Narrative: GENERAL: Well-appearing, well-nourished, and in no acute distress. HEAD: Normocephalic, atraumatic. EYES: PERRLA and EOMI. ENT: Nares clear, no rhinorrhea or epistaxis. Mucous membranes moist. Oropharynx without tonsillar hypertrophy exudate or other lesions. Left TM is erythematous and there is yellow exudate behind left TM. NECK: Supple. No adenopathy or masses. No carotid bruits or JVD CHEST: Clear to auscultation. No respiratory distress. No wheezes rales or rhonchi HEART: Regular rate and rhythm. No murmur heard. Normal peripheral pulses. ABDOMEN: Soft, nontender, nondistended, normal active bowel sounds. EXTREMITIES: Normal range of motion. No edema. SKIN: Warm, dry, no rash. NEURO: No focal deficits. Alert and oriented x3. PSYCH: Normal mood and affect. Course Course Emergency Course: This is a 24 year old female who presented for evaluation of left sided ear pain, headache and left sided neck pain. She has evidence of otitis media on exam. Will dc with augmentin and flonase. Follow up with primary provider. Go to the ER for worsening symptoms. Pt in agreement with plan of care. Level of Care: Express Care Visit Vital Signs Vital signs: Vital Signs Temperature 36.2 C L 01/16/25 13:50 Pulse Rate 92 01/16/25 13:50 Respiratory Rate 12 01/16/25 13:50 Blood Pressure 133/64 01/16/25 13:50 Pulse Oximetry 100 01/16/25 13:50 Oxygen Delivery Room Air 01/16/25 13:50 Temperature 36.2 C L 01/16/25 13:50 Pulse Rate 92 01/16/25 13:50 Respiratory Rate 12 01/16/25 13:50 Blood Pressure 133/64 01/16/25 13:50 Pulse Oximetry 100 01/16/25 13:50 Oxygen Delivery Room Air 01/16/25 13:50 Medical Decision Making Vital Signs Vital Signs: Vital Signs Temperature 36.2 C L 01/16/25 13:50 Pulse Rate 92 01/16/25 13:50 Respiratory Rate 12 01/16/25 13:50 Blood Pressure 133/64 01/16/25 13:50 Pulse Oximetry 100 01/16/25 13:50 Oxygen Delivery Room Air 01/16/25 13:50 Temperature 36.2 C L 01/16/25 13:50 Pulse Rate 92 01/16/25 13:50 Respiratory Rate 12 01/16/25 13:50 Blood Pressure 133/64 01/16/25 13:50 Pulse Oximetry 100 01/16/25 13:50 Oxygen Delivery Room Air 01/16/25 13:50 Discharge Plan Discharge Clinical Impression: Acute dysfunction of eustachian tube, Acute otitis media, left Patient Disposition: Home Condition: Stable Instructions: Antibiotic Form, Ear Infection (ED) Patient Language: Citizen Of [place] Prescriptions: New fluticasone propionate [Flonase Allergy Relief] 50 mcg/actuation spray,suspension 2 spray intranasal DAILY Qty: 16 0RF Rx Instructions: administer into each nostril amoxicillin-pot clavulanate 875-125 mg tablet 1 tablet PO Q12H Qty: 20 0RF No Action citalopram 40 mg tablet etonogestrel-ethinyl estradiol [EluRyng] 0.12-0.015 mg/24 hr ring VAGINAL Follow-up/Referrals: Sonia,MD Blane [Primary Care Provider] - Time of Disposition: 14:12
== END 2025-01-16 14:15 | disposition home or self-care (01) ==
PROVIDERS: Emergency Provider Nurse Practitioner; PCP Family Medicine
DX: H69.82 Other specified disorders of Eustachian tube, left ear (principal); H66.92 Otitis media, unspecified, left ear; F17.290 Nicotine dependence, other tobacco product, uncomplicated; F41.9 Anxiety disorder, unspecified; F32.A Depression, unspecified
CPT/HCPCS: 99213; G0463

== ENCOUNTER 2025-04-18 18:26 | Emergency (ER) | payer OTHER, SELFPAY ==
--- OUTSIDE RECORDS SUMMARY | 2025-04-18 18:29 | XMS_ITS | Clinical Summary ---
Author Organization [facility] 1 [employer] Address [address] [place] [address] Phone Care Team Providers Care Appian Developer Name Role Phone Jasson Hagan MD Primary Care Provider [phone] Allergies No known active allergies Medications citalopram (CeleXA) 40 mg tablet Take 1 tablet (40 mg total) by mouth daily 90 tablet 2 07/28/19 25 Active etonogestreL-ethi nyl estradioL (NUVARING, ELURYNG) 0.12-0.015 mg/24 hr vaginal ringIndications:E ncounter for surveillance of vaginal ring hormonal contraceptive device Insert vaginally and leave in place for 3 consecutive weeks, then remove for 1 week. 3 each 4 02/15/20 25 026 Active clobetasoL (TEMOVATE) 0.05 % creamIndications: Allergic contact dermatitis, unspecified trigger Apply topically 2 (two) times a day 30 g 02/20/20 25 Active cholecalciferol (VITAMIN D-3) 2000 unit tablet Act helio cyanocobalamin (Vitamin B-12) 1,000 mcg tabletIndications :Prevention of Vitamin B12 Deficiency Take 1 tablet (1,000 mcg total) by mouth daily Active amoxicillin-clavu lanate (AUGMENTIN) 875-125 mg per tabletIndications :Sialoadenitis Take 1 tablet by mouth 2 (two) times a day for 10 days 20 tablet 03/22/20 025 Active Problems Problem Noted Date Diagnosed Date Annual physical exam 01/22/2024 Assessment & Plan (01/22/2024 10:49 AM CDT): Discussed lifestyle modifications, diet and exercise. Routine blood work ordered/reviewed today. Yearly vision and dental examinations. COVID-19 03/17/2023 Assessment & Plan (03/17/2023 3:08 PM CDT): Paxlovid prescribed, Paxlovid fact she sent to patient via [employer]. Treat symptoms with rlik-qdl-gqxqird medications. Go to nearest emergency room if signs or symptoms worsen. Irritable bowel syndrome with diarrhea Assessment & Plan (11/18/2022 11:50 AM CDT): Symptoms are stable. Assessment & Plan (05/16/2022 10:58 AM AGENT TELEGRAPHER): Increase fiber in diet. Decrease fatty/ greasy [...] counseling. Assessment & Plan (07/28/2024 11:24 AM AGENT TELEGRAPHER): Wt Readings from Last 3 Encounters: 07/28/24 [...] counseling. Assessment & Plan (07/22/2023 10:26 AM AGENT TELEGRAPHER): Wt Readings from Last 3 Encounters: 07/22/23 76.7 kg (169 lb) 07/17/23 77 kg (169 lb 11.2 oz) 04/09/23 73.9 kg (163 lb) BMI Readings from Last 3 Encounters: 07/22/23 30.40 kg/m 07/17/23 30.52 kg/m 04/09/23 29.34 kg/m Not at goal of bmi <30 Continue diet and exercise BMI Follow-up includes: nutrition counseling and exercise counseling. Assessment & Plan (07/17/2023 11:19 AM AGENT TELEGRAPHER): Wt Readings from Last 3 Encounters: 07/17/23 [...] in your mouth on an kaushik like [employer] or [employer] carries a zero net carb bread [...] in much longer they will become mushy [place] and/or coconut flour instead of regular flour [...] pork rinds For yogurt, try [employer] luxembourgish yogurt Use Pinterest for recipe ideas. Type [...] 12/08/2017 Assessment & Plan (07/28/2024 11:26 AM AGENT TELEGRAPHER): Lab Results Component Value Date WBC 5.0 [...] and Assessment & Plan (07/28/2024 11:25 AM AGENT TELEGRAPHER): At goal at this time Has had some stress at home Celexa 40 mg every day Assessment & Plan (01/22/2024 10:50 AM CDT): At goal at this time Has had some stress at home Celexa 40 mg every day Cont inderal 20 mg tid, buspar 5 mg tid Assessment & Plan (07/22/2023 10:23 AM AGENT TELEGRAPHER): Not at goal at this time Will increase celexa to 40 mg every day States that she has had periods of 'paranoia' , gets heart palpitations, feels hyper aware of her body and anxiety worsens Worsening sx Start buspar 5 mg tid Start propranolol Assessment & Plan (07/17/2023 11:18 AM AGENT TELEGRAPHER): Not at goal at this time Will [...] recheck. Assessment & Plan (05/16/2022 10:57 AM AGENT TELEGRAPHER): Increase sertraline to 100mg daily. Consider returning [...] months Assessment & Plan (05/05/2019 8:59 PM AGENT TELEGRAPHER): Will restart zoloft. Start 50mg x 7 days, then increase to 100mg daily. Pt states she has family support and knows to seek help if she has suicidal ideations. I asked her to f/u in 1 month for recheck Assessment & Plan (05/18/2018 4:06 PM AGENT TELEGRAPHER): I discussed referral to psychiatry with patient. She had a bad experience with a previous psychiatrist seen at [facility]. I told her that I would refer [...] them the name of a psychiatrist in [place] if they wishes to see them. They [...] normal. Will refer to neurology at [facility]. Off work for 1 week. May [...] 01/16/201805/05 Assessment & Plan (05/18/2018 4:03 PM AGENT TELEGRAPHER): Discussed that sertraline can cause some increase hunger , but is not going to cause weight gain by itself. Taking it off of her is not going to cause weight loss magically either. Recommended seeing a desulfurizer hand to discuss eating habits and to start [...] Encounters Date Type Department Care Team Description 03/22/2025 7:00 PM CDT Office Visit [facility] Medical [facility] Care at [address] [place] [address] Ainsley Zelaya NP Sialoadenitis (Primary Dx); Non-recurrent acute suppurative otitis media of left ear without spontaneous rupture of tympanic membrane 03/18/2025 4:00 PM CDT Office Visit [facility] at [address] [place] [address] Jasson Hagan MD Pruritic rash (Primary Dx) 03/18/2025 Telephone [facility] at [address] [place] [address] Jasson Hagan MD Medical Question/Miscellaneou s 02/22/2025 3:00 PM CDT Office Visit [facility] at [address] [place] [address] Jasson Hagan MD Rash (Primary Dx) 02/21/2025 Nurse Triage [facility] Medical Group Primary Care at [address] [place] [address] Blane Scott MD 02/19/2025 4:45 PM CDT Office Visit [facility] at [address] [place] [address] Marie Petty NP Allergic contact dermatitis, unspecified trigger (Primary Dx) 02/09/2025 Results [facility] [address] [place] [address] Karina Hernandez MD Pap with reflex to High Risk HPV and Genotyping (Cytology Component) 02/02/2025 11:21 AM CDT - 02/02/2025 11:59 PM CDT Hospital Encounter [facility] [address] [place] [address] Screening for malignant neoplasm of the cervix Discharge Disposition: Discharge to home or self care 02/02/2025 10:00 AM CDT [facility] [address] [place] [address] Karina Hernandez MD Encounter for gynecological examination without abnormal finding (Primary Dx); Irregular menses; Encounter for preconception consultation; Screening for malignant neoplasm of the cervix 01/19/2025 11:00 AM CDT Office Visit [facility] Care at [address] [place] [address] Marie Petty NP Dysfunction of both eustachian tubes (Primary Dx) 01/19/2025 Nurse Triage [facility] Primary Care at [address] [address] Blane Scott MD from Last 3 Months Immunizations Immunization Administration [...] 3rd pack. Has also tried Sprintec, Microgestin 1.11/12 and NuvaRing Class 1 obesity due to [...] Not Answered Alcohol Use Standard Drinks/Week Comments Never 0 (1 standard drink = 0.6 oz pur e alcohol) PHQ-2 Answer Date Recorded PHQ-2 Total Score (If total score is 3 or more points, staff should administer the PHQ-9) 0 03/18/2025 AUDIT-C Answer Date Recorded Q1: How often do you have a drink containing alcohol? Never 03/18/2025 Q2: How many drinks containi ng alcohol do you have on a typical day when you are drinking? Patient does not drink Q3: How often do you have si x or more drinks on one occasion? Never 03/18/2025 Comments No Sex and Gender Information Value Date Recorded Sex Assigned at Not on file Legal Sex Female 2:32 AM AGENT TELEGRAPHER Gender Identity Not on file Sexual Orientation [...] None N Livin g 8 9 MICHELLE AMS,B Karina Ramos MD Complications:Other (Comment ) Delivery Location:This Facil ity ([facility]) Comments 1. 2020 - PROM, pitocin augm entation. Last Filed Vital Signs Vital Sign Reading Time Taken Comments Blood Pressure 128/78 03/22/2025 6:59 PM CDT Pulse 94 03/22/2025 6:59 PM CDT Temperature 36.3 C (97.4 F) 03/22/2025 6:59 PM CDT Respiratory Rate 16 03/22/2025 6:59 PM CDT Oxygen Saturation 99% 03/22/2025 6:59 PM CDT Inhaled Oxygen Concentration - - Weight 91.2 kg (201 lb) 03/22/2025 6:59 PM CDT Height 157.5 cm (5' 2) 03/22/2025 6:59 PM CDT Body Mass Index 36.76 03/22/2025 6:59 PM CDT Plan of Treatment Health Maintenance Due Date Last Done Comments Chlamydia and Gonorrhea (GC/ CT) Screening 01/27/2025 01/28/2024, 01/20/2023, 01/18/2022, Additional history exists Covid-19 Vaccine (2024-07 6 season) 2025 10/23/2021, 05/07/2021 Influenza Vaccine (#1) 2025 , 04/04/2022, 03/02/2020, Additional history exists Cervical Cancer Screening 02/02/2026 02/02/2025, 10/2021 Regular Well Visit/Exam 18-64 02/02/2026, 01/28/2024, 01/22/2024, Additional history exists Depression Screening 03/18/2026 03/18/2025, 07/28/2024, 01/22/2024, Additional history exists DTaP/Tdap/Td Vaccine (8 - Td or Tdap) 12/04/2030 12/04/2020, 01/09/2011, 10/01/2005, Additional history exists Hepatitis B Screening Completed 10/02/2001 , 10/02/2001, 02/03/2001, Additional history exists Varicella Vaccines Completed 01/09/2011, 01/01/2002 HPV Vaccines Completed 01/10/2017, 05/0 06/2016, 11/01/2014 Hepatitis C Screening Completed 05/01/2020 Pneumococcal vaccine <65 Completed 022, 07/08/2002, 07/08/2002, Additional history exists Procedures Procedure Name Priority Date/Time Associated Diagnosis Comments PAP WITH REFLEX TO HIGH RISK HPV Routine 02/02/2025 12:07 PM CDT Screening for malignant neoplasm of the cervix THINPREP PROCESSING (MOLECULAR COMPONENT) Routine 02/02/2025 11:21 AM CDT Screening for malignant neoplasm of the cervix POCT HCG, URINE Routine 02/02/2025 10:46 AM CDT Irregular menses N. GONORRHOEAE/C. TRACHOMATIS AMPLIFICATION Routine 01/28/2024 1:00 PM CDT Screening examination for venereal disease HEPATITIS C ANTIBODY Routine 05/01/2020 2:10 PM AGENT TELEGRAPHER 8 weeks gestation of Encounter for supervision of normal first in first trimester from Last 3 Months or Most Recently Relevant to Health Maintenance Results * Pap with reflex to High Risk HPV and Genotyping (Cytology Component) (02/02/2025 12:07 PM CDT) Thin prep (Pap test) 02/02/2025 12:07 PM CDT 02/03/2025 12:07 PM CDT Narrative PATHOLOGY CH - 02/08/2025 2:[address] [facility] Department of Pathology [address] [place] [address] Final Report Note to Patients: This report [...] the details. Patient Name: JOHANNY RAMOS Address: [address] [place] [address]- Gender: F : 2000 (Age: 24) Service: Location: N : [id number] [facility] #: [id number] Patient Type: [facility] SPECIMEN Taken: 02/02/2025 Received: 02/03/2025 Accessioned:: 02/03/2025 Reported: 02/08/2025 Physician(s): MD Karina Sanchez MD Diagnosis: SOURCE OF SPECIMEN Imaged Thinprep Pap Test w/ Reflex HPV - Caponizer Cytologic Material: STATEMENT OF ADEQUACY - Satisfactory for evaluation; endocervical/transformation zone component present GENERAL CATEGORIZATION: - Negative for intraepithelial lesion or malignancy DIAZ Golden(ASCP) Report Electronically Reviewed and Signed Out By DIAZ Golden(ASCP) 02/08/2025 14:48:47Specimen(s) Received: A: Imaged Thinprep Pap Test w/ Reflex HPV - Caponizer Cytologic Material Clinical History: Last Menstrual Period: 12/21/24 Menstrual History: Previous Negative Pap The Pap test is a screening test [...] determined by the Surgical Pathology Department at [facility] as part of an ongoing supplier quality engineering manager program and in compliance with federally mandated [...] characteristics determined by the Surgical Pathology Department [facility]. It has not been cleared or approved by the [place]. S. Food and Drug Administration. Karina Hernandez MD LAB CYTOLOGY ORDERABL ES Final Result PATHOLOGY [address] [place] [address] * ThinPrep processing (Molecular component) (02/02/2025 11:21 AM CDT) [facility] ThinPrep processing (Molecular component) Specimen received for processing. [facility] Comment:Testing performed by : [facility], [address] [place]., [address] Endocervical 02/02/2025 11:2 1 AM CDT 02/03/2025 3:15 PM CDT Karina Hernandez MD LAB BODY FLUIDS AND S TOOLS ORDERABLES Final Result MARK [address] [address] Department [place] [address] [facility] * POCT hCG, urine (02/02/2025 10:46 AM CDT) [facility] HCG, ur, POC Negative Negative Lot Number [id number] QC Backgroud Clear Acceptable QC Control Line Acceptable Urine 02/02/2025 10:4 6 AM CDT Karina Hernandez MD POINT OF CARE TEST OR DERABLES Final Result * N. gonorrhoeae/C. trachomatis Amplification Endocervical (01/28/2024 1:00 PM CDT) [facility] C. trachomatis Not Detected [facility] Comment:Testing performed by : [facility], [address] [place] [address], [place]., [address] N. gonorrhoeae Not Detected [facility] Comment: Interpretive Data This assay detects Chlamydia trachomatis and Neisseria gonorrhoeae by nucleic acid amplification testing (NAAT). This assay has been cleared by the [place] Food and Drug administration. The performance characteristics of this test have been verified by the [facility] Molecular Infectious Disease laboratory. The performance characteristics of this test have not been evaluated in individuals less than 14 years of age. Current Interpretive Data was last revised on 2023. Testing performed by: [facility], [address] [place] [address], [place] [address] Endocervical (None) 01/28/20 24 1:00 PM CDT 01/29/2024 9:59 AM CDT Karina Hernandez MD LAB MICROBIOLOGY - GE NERAL ORDERABLES Final Result Performing Organization Address [facility]/ZIP Co de Phone Number MARK TARANGO [id number] [employer] [place] [address] [facility] * Hepatitis C antibody (05/01/2020 2:10 PM AGENT TELEGRAPHER) Hep C Ab Nonreactive Nonreactive [facility] Comment: Interpretive Data Nonreactive: Antibodies to [...] 2019. Blood specimen (specimen) 05/01/2020 2:10 PM AGENT TELEGRAPHER 05/01/2020 7:03 PM AGENT TELEGRAPHER Karina Hernandez MD LAB MICROBIOLOGY - GE NERAL ORDERABLES Final Result Performing Organization Address [facility]/ZIP Co de Phone Number MARK TARANGO [phone] [address] [employer] [place] [address] from Last 3 Months or Most Recently Relevant to Health Maintenance Insurance [employer] [facility] [place] [facility] [employer] [place] [employer] [place] [email or web address] [facility] Advance Directives For more information, please contact: [phone] * Full Code (Latest Code Status on File) Date Activated Date Inactivated Comments 12/03/2020 12:01 AM 12/04/2020 11:17 PM * Full Code Date Activated Date Inactivated Comments 12/02/2020 1:51 PM 12/03/2020 12:01 AM Full CPR in case of cardiopulmonary arrest Care Teams Appian Developer Relationship Specialty Start Date End Date Jasson Hagan MD 2 [facility] [address] [address] PCP - General Family Medicine 02/22/25
--- OUTSIDE RECORDS SUMMARY | 2025-04-18 18:29 | XMS_ITS | Encounter Summary ---
Author Organization [facility] Address [address] [place] [address] Care Team Providers Care Production Graphic Designer Name Role Phone Jasson Hagan MD Primary Care Provider [phone] Reason for Visit * Reason Onset Date Comments Medical Question/Miscellaneous 03/18/2025 Encounter Details Date Type Department Care Team (Late st Contact Info) Description 03/18/2025 Telephone [facility] Residency Clinic at [address] [place] [address] Jasson Hagan MD [address] [place] [address] [address] [place] [address] Medical Question/Miscellaneous Social History Tobacco Use Types Packs/Day Years Used Date Smoking Tobacco: Every Day Cigarettes Last attempted to quit: 03/2020 Vaping Smokeless Tobacco: Never Alcohol Use Standard Drinks/Week Comments Never 0 [...] on file Legal Sex Female 2:32 AM SITE ADMINISTRATOR Gender Identity Not on file Sexual Orientation Not on file Occupation Industry Job Start Date Job End Date Not on file Not on file Not on file Not on file documented as of this encounter Functional Status * AUDIT-C Score Answer Date of Assessment Author 0 03/18/2025 4:03 PM CDT Aneta Flood MA * Question Answer Date of Assessment Author Q1: How often do you have a drink containing alcohol? Never 03/18/2025 4:03 PM CDT Danielle Flood MA Q2: How many drinks containing alcohol do you have on a typical day when you are drinking? Patient does not drink 03/18/2025 4:03 PM CDT Danielle Flood MA Q3: How often do you have six or more drinks on one occasion? Never 03/18/2025 4:03 PM CDT Danielle Flood MA documented as of this encounter Miscellaneous Notes * Telephone Encounter - Kenna Matute MA - 03/18/2025 11:37 AM CDT Medical Question/Miscellaneous Caller???s Concern: Johanny called because she has a bunch of bumps that are itching on her palm ofher hand and is spreading up her fingers. She states that is seems to be causing some swelling as well. She was seen on 02/22/25 for eczema and was given clobetasol 0.05% cream. She has put that on herhand today. She is not sure if she should have or not. Please contact her via [employer] or by phone and let her know if she should wash it off or if it was ok to use it. She did make an appointment to see Dr. Hagan this afternoon. Does message need to be routed? Yes-Action Needed documented in this encounter Plan of Treatment Not on file documented as of this encounter Visit Diagnoses Not on filedocumented in this encounter Care Teams Production Graphic Designer Relationship Specialty Start Date End Date Jasson Hagan MD 2 [facility] [address] [place] [address] PCP - General Family Medicine 02/22/25 documented as of this encounter
--- OUTSIDE RECORDS SUMMARY | 2025-04-18 18:29 | XMS_ITS | Clinical Summary ---
Author Organization [facility] Address [address] [place] [address] Phone Care Team Providers Care Mobile Paramedical Examiner Name Role Phone Blane Scott MD Primary Care Provider [phone] Allergies No known active allergies Medications naproxen [...] Comments Blood Pressure 105/64 08/13/2023 2:30 PM INFORMATION SYSTEMS TECHNICIAN Pulse 70 08/13/2023 2:30 PM INFORMATION SYSTEMS TECHNICIAN Temperature 36.5 C (97.7 F) 08/13/2023 11:38 AM INFORMATION SYSTEMS TECHNICIAN Respiratory Rate 17 08/13/2023 2:30 PM INFORMATION SYSTEMS TECHNICIAN Oxygen Saturation 99% 08/13/2023 2:30 PM INFORMATION SYSTEMS TECHNICIAN Inhaled Oxygen Concentration - - Weight 72.6 kg (160 lb) 08/13/2023 11:34 AM INFORMATION SYSTEMS TECHNICIAN Height 160 cm (5' 3) 08/13/2023 11:34 AM INFORMATION SYSTEMS TECHNICIAN Body Mass Index 28.34 08/13/2023 11:34 AM INFORMATION SYSTEMS TECHNICIAN Plan of Treatment Health Maintenance Due Date Last Done Comments Hepatitis C Virus (HCV) Screening 2000 Pap Smear 2021 Influenza Immunization (#1) 02/14/202503/17, 03/02/2020, 03/16/2019, Additional history exists SARS-COV-2 Immunization ( season) 2025 10/23/2021, 05/07/2021 Respiratory Syncytial Virus (RSV) Immunization [...] Insurance MEDICAID [employer] Care Teams Mobile Paramedical Examiner Relationship Specialty Start Date End Date Blane Scott MD [address] [facility] [address] [place] [id number] PCP - General Senior Account Representative 02/16/22
[2025-04-18 18:34] VITALS: BP 141/93; PULSE 91; RESP 20; TEMP 37.3; O2SAT 100
--- NOTE | 2025-04-18 18:55 | ED.URI ---
HPI - URI/Sore Throat General Chief Complaint: Upper Respiratory Infection Stated Complaint: L molar pain, covid symtpoms Time Seen by Provider: 04/18/25 18:55 Source: patient, RN notes reviewed and old records reviewed Mode of arrival: ambulatory Limitations: no limitations History of Present Illness HPI Narrative: 24-year-old female presents to the [facility] with sore throat congestion as well as feeling like her left ear is clogged since yesterday. Reports left posterior molar pain, left lower. Patient concerned she might have COVID. Has taken Tylenol. No other treatment prior to arrival Related Data Home Medications ?Medication ?Instructions ?Recorded ?Confirmed ?Last Taken ?Type citalopram 40 mg tablet mg 06/10/24 Unknown History etonogestrel 0.12 mg-ethinyl vag ring vaginal 06/10/24 Unknown History estradiol 0.015 mg/24 hr vaginal ring (EluRyng) Allergies Allergy/AdvReac Type Severity Reaction Status Date / Time No Known Drug Allergies Allergy Unknown Verified 04/18/25 18:52 Review of Systems Review of Systems: All systems reviewed & are unremarkable except as noted in HPI and below Constitutional: Constitutional: Reports no additional constitutional complaints ENT: Reports as per HPI Cardiovascular: Cardiovascular: Reports no additional cardiovascular complaints, Denies chest pain and Denies dyspnea Respiratory: Respiratory: Reports no additional respiratory complaints, Denies chest congestion, Denies cough and Denies dyspnea Musculoskeletal: Musculoskeletal: Reports no additional musculoskeletal complaints Integumentary/Breasts: Skin/Breast: Reports system reviewed and no additional complaints, except as docu PMFSH Past Medical History Medical History Anxiety and depression OCD (obsessive compulsive disorder) Surgical History Surgical History No pertinent past surgical history Family History Family History Mother Family history non-contributory Social History Social History Smoking status: Current every day smoker Tobacco type: e-cigarettes/vaping Alcohol intake: unknown Substance use: unknown Gender identity (if verbalized by the patient): Female Spiritual care concerns: No Comments At the time of my signature, I reviewed and agree with the nursing past medical, surgical, social, and family history. There is no relevant family history pertinent to the patient complaint. Exam Const: General: cooperative, healthy appearing, comfortable, no acute distress, well developed, alert and well nourished Nutritional Appearance: well nourished Orientation/consciousness: patient oriented x3 Limitations: no limitations HENMT: Head: normal to inspection Ears: hearing grossly normal bilaterally, external ears normal, TM's normal bilaterally, EAC's normal, mastoids normal and no periauricular adenopathy Face/Nose/Sinus: Normal external nose present and Normal nasal mucous membranes and turbinates present Mouth: Yes Normal oral and palatal mucosa present, Yes lip normal, Yes tongue normal and Yes moist mucous membranes Teeth image:  1. Tenderness with mild swelling, no erythema to a posterior left lower gum area. No erythema or swelling around the teeth. Throat: posterior oropharynx normal, uvula midline and no uvular edema Eyes: General: appearance normal, both eyes and all related structures Alignment and Position: alignment normal Neck: Neck: normal visual inspection, full ROM, no lymphadenopathy and no meningeal signs Chest: Chest palpation & inspection: normal inspection of the chest Resp: Effort & Inspection: normal respiratory effort and able to speak in complete sentences Auscultation: clear to auscultation bilaterally, no crackles, no rales, no rhonchi and no wheezes Cardio: Rate: regular rate Skin: General skin exam: normal color and no rashes or lesions noted Neuro: General: patient oriented x3, gait normal, moves all extremities and no meningeal signs Cognition (Neuro): normal cognition Speech: normal speech Gait exam (Neuro): Normal gait present Extrem: General: normal to inspection, full ROM, capillary refill normal and normal gait Psych: Appearance: grossly normal and well kempt Mental Status: mental status grossly normal Speech and movement: Normal speech and movement present and Clear speech present Affect: normal affect Attitude: cooperative Course Course Level of Care: Express Care Visit Vital Signs Vital signs: Vital Signs Temperature 99.2 F 04/18/25 18:34 Pulse Rate 91 04/18/25 18:34 Respiratory Rate 20 04/18/25 18:34 Blood Pressure 141/93 H 04/18/25 18:34 Pulse Oximetry 100 04/18/25 18:34 Oxygen Delivery Room Air 04/18/25 18:34 Temperature 99.2 F 04/18/25 18:34 Pulse Rate 91 04/18/25 18:34 Respiratory Rate 20 04/18/25 18:34 Blood Pressure 141/93 H 04/18/25 18:34 Pulse Oximetry 100 04/18/25 18:34 Oxygen Delivery Room Air 04/18/25 18:34 Reviewed MDM - URI/Sore Throat MDM Narrative Medical decision making narrative: Patient sitting in exam room. Patient nontoxic, vitals are stable, blood pressure mildly elevated. Patient presents with 1 day history of URI symptoms as well as molar pain. Flu, COVID, strep were negative. Will culture strep No acute findings noted on exam. Patient is appropriate for outpatient treatment with close follow-up Discharge instructions reviewed with patient, as well as provided in writing per nursing staff. The instructions also include specific and strict return/GO TO THE ER as well as f/u information. All questions have been answered, and the patient deny any further questions with discharge and discharge plan. Some parts of this dictation were generated by voice recognition software and may contain typographical and/or grammatical inaccuracies. Differential Diagnosis Differential diagnosis: Likely upper respiratory infection, otitis media, sinusitis, viral infection, bronchitis, influenza and pharyngitis Lab Data Labs: Lab Results 04/18/25 Range/Units 19:07 POC Influenza A Ag Negative (Negative) POC Influenza B Ag Negative (Negative) POC SARS CoV-2 Ag Negative (Negative) POC Grp A Strep Screen Negative (Negative) Reviewed Critical Care Time Critical Care Time Critical Care Time: No Discharge Plan Discharge Clinical Impression: Toothache Upper respiratory infection Qualifiers: URI type: unspecified viral URI Qualified Code(s): J06.9 - Acute upper respiratory infection, unspecified Patient Disposition: Home Condition: Stable Instructions: Antibiotic Form, Upper Respiratory Infection (ED), Toothache (ED) Additional Instructions: Your rapid strep swab was negative today at [facility]. A throat culture will be sent to the laboratory for further testing. If the test is positive, you will receive a phone call within 48 hours and an appropriate antibiotic will be initiated at that time. Your rapid COVID test were negative Your rapid flu test was negative Your symptoms are likely due to a viral illness, which is not treated with antibiotics. Typically viral infections last 7-10 days, can linger for couple of weeks. It is very important to treat your symptoms. Drink plenty of water, Gatorade, Pedialyte, ice pops or Jell-O. -Alternate Tylenol and Motrin per package directions for fever or pain. You can alternate every 4 hours -Antihistamine medication such as Zyrtec/Claritin/Jewels during the day can help improve symptoms. -doing daily nasal irrigations can help relieve pressure your sinuses. Things like a Neti pot -Use Flonase twice a day for 5 days then daily to help reduce the inflammation and dry up your sinuses. -You can also use Mucinex. Be sure to drink plenty of water with this medication at least 8 ounces with every dose and it is important to drink 8 to 10 glasses of water per day. Water is a natural decongestant -Eat and drink things that are easy to swallow, like tea or soup, or popsicles. -Oral rinses such as: Salt water gargles and/or may use topical anesthetic (eg. Chloraseptic spray) or lozenges to relieve dryness or throat pain). -Frequent hand washing or hand kraft mill operator is one of the best ways to prevent spread of infection. -Using a vaporizer or humidifier at night will also help thin secretions and help with coughing up phlegm. -Follow up with primary care provider in 7-10 days if condition is not improving - For new or worsening symptoms go directly to the nearest ER follow-up with a dental provider for further evaluation of your tooth ache. Patient Language: Khmer Prescriptions: No Action citalopram 40 mg tablet etonogestrel-ethinyl estradiol [EluRyng] 0.12-0.015 mg/24 hr ring VAGINAL Follow-up/Referrals: UNKNOWN,DOCTOR [Primary Care Provider] Stand Alone Forms: Work/School Release IP Time of Disposition: 19:05
[2025-04-18 19:08] LABS: EDCOVIDSCREEN Negative (Negative)
[2025-04-18 19:09] LABS: EDINFLUASCREEN Negative (Negative); EDINFLUBSCREEN Negative (Negative); EDSTREPNEGPOS1 Negative (Negative)
== END 2025-04-18 19:10 | disposition home or self-care (01) ==
PROVIDERS: Emergency Provider Nurse Practitioner
DX: K08.89 Other specified disorders of teeth and supporting structures (principal); J06.9 Acute upper respiratory infection, unspecified; F17.290 Nicotine dependence, other tobacco product, uncomplicated; Z20.822 Contact with and (suspected) exposure to COVID-19
CPT/HCPCS: 87081; 87426; 87804; 87880; 99213; G0463